=== PATIENT | female | born 1990 | race African-American/Black ===

== ENCOUNTER 2016-05-30 06:25 | Emergency (ER) | payer MEDICAID ==
--- NOTE | 2016-05-30 06:43 | EDM.PDOC ---
ED HPI ENT - General Chief Complaint: ENT Problem Stated Complaint: WRIST PAIN/ ABCESS TOOTH Time Seen by Provider: 05/30/16 06:34 - History of Present Illness INITIAL COMMENTS - FREE TEXT/NARRATIVE: 25-year-old female presents emergency room with dental pain and hand pain. The patient has a several-day history of worsening dental pain right lower rear tooth. This is been getting worse. Patient denies any fevers or chills. The pain is starting to shoot into her ear. The patient has been developing bilateral wrist and hand pain. She's tried ibuprofen 800 mg 3 times a day and it has not helped much. Her right hand is more painful than the left. on her left hand she's noticed decreased pillow agent strength. She has numbness and tingling in her thumb and index finger. On the right side she seems to have generalized pain in the hand and wrist area with a tingling sensation in the ring and pinky fingers. She is not having any associated elbow or shoulder pain with this. Past medical history is significant for ulcerative colitis. Family history is concerning for rheumatoid arthritis and ulcerative colitis - Related Data Allergies/ADRs: Allergies Allergy/AdvReac Type Severity Reaction Status Date / Time venom-honey bee Allergy Swelling Verified 05/30/16 06:40 [bee venom (honey bee)] Home Meds: Home Meds Amoxicillin 500 mg PO TID #30 tab 05/30/16 [Rx] Hydrocodone/Acetaminophen [[place] 5-325 Tablet] 1 - 2 each PO Q6H PRN #15 tablet 05/30/16 [Rx] Ibuprofen 800 mg PO Q6H PRN 05/30/16 [History] Past Medical History HEENT History: Reports: Other (see below) Other HEENT History: ear infection. dental pain Respiratory History: Reports: Asthma Gastrointestinal History: Reports: Other (see below) Other Gastrointestinal History: COLITIS. 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: - Infectious Disease History Infectious Disease History: Reports: None - Past Surgical History Female Surgical History: Reports: Other (see below) Other Female Surgeries/Procedures: has had 4 vaginal deliveries Social & Family History - Tobacco Use Smoking Status *Q: Current Every Day Smoker Years of Tobacco use: 12 Packs/Tins Daily: 0.5 Used Tobacco, but Quit: No Second Hand Smoke Exposure: Yes - Caffeine Use Caffeine Use: Reports: Soda, Tea - Recreational Drug Use Recreational Drug Use: No Drug Use in Last 12 Months: Yes Recreational Drug Type: Reports: Marijuana/Hashish ED ROS ENT - Review of Systems Review Of Systems: See Below Constitutional: Reports: no symptoms HEENT: Reports: Dental pain Respiratory: Reports: no symptoms Cardiovascular: Reports: No symptoms GI/Abdominal: Reports: No symptoms ED EXAM, ENT - Physical Exam Exam: See Below Exam Limited By: No limitations General Appearance: alert, no apparent distress Ears: normal external exam, normal canal, hearing grossly normal, normal TMs Nose: normal inspection, normal mucousa, no blood Mouth/Throat: Normal lips, Normal oropharynx, Other (on her left lower teeth most posterior molar she has significant decay with some gum erythema and swelling no obvious abscess no drainage at this time.) Head: atraumatic, normocephalic Neck: normal inspection, supple, non-tender, full range of motion. No: lymphadenopathy (L), lymphadenopathy (R) Respiratory/Chest: no respiratory distress, lungs clear, normal breath sounds Cardiovascular: regular rate, rhythm, no edema, no murmur Course - Vital Signs Last Recorded V/S: Last Vital Signs Temp 36.7 C 05/30/16 06:32 Pulse 90 05/30/16 06:32 Resp 16 05/30/16 06:32 BP 118/85 05/30/16 06:32 Pulse Ox 100 05/30/16 06:32 - Re-Assessments/Exams Free Text/Narrative Re-Assessment/Exam: 05/30/16 07:08 with no recent injuries x-rays of her hands and wrists are most likely to be of no benefit. She does have a family history of rheumatoid arthritis. She will need to establish a local clinic to begin workup for this. Her symptoms especially on the left could be consistent with carpal tunnel syndrome Will attempt carpal tunnel splinting to see if this helps. Patient started on amoxicillin and a prescription for a few [place] for her dental complaints. Departure - Departure Time of Disposition: 06:46 Disposition: Home, Self-Care 01 Clinical Impression: Dental caries, Bilateral hand pain, Bilateral wrist pain Prescriptions: Amoxicillin 500 mg PO TID #30 tab Hydrocodone/Acetaminophen [[place] 5-325 Tablet] 1 - 2 each PO Q6H PRN #15 tablet PRN Reason: Pain Referrals: PCP,None [Primary Care Provider] - Forms: ED Department Discharge Additional Instructions: Return to emergency room if any questions or problems. Followup in the clinic next week for recheck of your wrists and hands. Followup with a dentist as soon as you can your tooth needs to be fixed. You have been given amoxicillin, this is a antibiotic, take one 3 times a day until all gone. You been given [place] this is a pain medication take one or 2 every 6 hours as needed for pain. Do not drive or returning to work within 12 hours of using this medication. Use ibuprofen only take with meals and discontinue if it causes stomach upset. You have been given a prescription for carpal tunnel splints. Try these while working and at rest to see if they help it may take a few weeks.
== END 2016-05-30 07:10 | disposition home or self-care (01) ==
LOC: JD.ED 06:25
CPT/HCPCS: 99283

== ENCOUNTER 2016-07-29 01:51 | Emergency (ER) | payer MEDICAID ==
[2016-07-29 02:00] VITALS: BP 120/72
[2016-07-29] MEDS ORDERED: Ketorolac 60 MG/2 ML SDV IM ONE (02:27)
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
== END 2016-07-29 02:52 | disposition home or self-care (01) ==
LOC: JD.ED 01:51
DX: S39.012A Strain of muscle, fascia and tendon of lower back, initial encounter (principal); F17.210 Nicotine dependence, cigarettes, uncomplicated; Z91.030 Bee allergy status; X50.0XXA Overexertion from strenuous movement or load, initial encounter; Y92.69 Other specified industrial and construction area as the place of occurrence of the external cause; Y99.0 Civilian activity done for income or pay
CPT/HCPCS: 96372; 99283; J1885

== ENCOUNTER 2016-08-07 13:40 | Emergency (ER) | payer MEDICAID ==
[2016-08-07 13:51] VITALS: BP 112/71
[2016-08-07] MEDS ORDERED: Naproxen 500 MG Tab PO ONE (14:16)
[2016-08-07] MEDS ORDERED: Penicillin V Potassium 500 MG Tab PO ONE (14:16)
--- NOTE | 2016-08-07 14:22 | EDM.PDOC ---
ED HPI GENERAL MEDICAL PROBLEM - General Chief Complaint: ENT Problem Stated Complaint: TOOTH PAIN Time Seen by Provider: 08/07/16 13:46 Source of Information: Reports: Patient, Old Records, RN Notes Reviewed, Other ( [place] PMP[place]) History Limitations: Reports: No Limitations - History of Present Illness INITIAL COMMENTS - FREE TEXT/NARRATIVE: The patient states that she has an upper right tooth abscess. She states that she has pain to the right side of her mouth, extending to the right side of her face. She states that she saw a dentist in [place] about 2 months ago, and he recommended tooth extraction, however, she states that she does not have the money to pay for it. She denies recent fever. She states that she has had nausea, but no emesis. Reviewing the medical records, it appears that the patient has had this same toothache since at least March 2015. When asked about that, she reports that she goes to ERs periodically and gets prescriptions of antibiotics and pain medications, which she states she is currently out of. She states that she has an appointment to see a dentist here in [place] this coming 08/10/2016, and that this dentist takes payment plans. 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: Social & Family History - Family History Musculoskeletal: Reports: RA - Tobacco Use Smoking Status *Q: Current Every Day Smoker Years of Tobacco use: 12 Packs/Tins Daily: 0.3 Packs/Tins Daily Comment: Down from 1.5 ppd Second Hand Smoke Exposure: Yes - Caffeine Use Caffeine Use: Reports: Coffee - Alcohol Use Alcohol Use History: Yes Alcohol Use Frequency: Socially - Recreational Drug Use Recreational Drug Use: Yes Drug Use in Last 12 Months: Yes Recreational Drug Type: Reports: Marijuana/Hashish Recreational Drug Use Frequency: Socially - Living Situation & Occupation Living situation: Reports: Single, with Family Occupation: Employed ([employer]) ED ROS ENT - Review of Systems Review Of Systems: See Below Constitutional: Reports: No Symptoms HEENT: Reports: Dental Pain (as per the HPI) Respiratory: Reports: No Symptoms Cardiovascular: Reports: No Symptoms Endocrine: Reports: No Symptoms GI/Abdominal: Reports: No Symptoms : Reports: No Symptoms Musculoskeletal: Reports: No Symptoms Skin: Reports: No Symptoms Neurological: Reports: No Symptoms Psychiatric: Reports: No Symptoms Hematologic/Lymphatic: Reports: No Symptoms Immunologic: Reports: No Symptoms ED EXAM, ENT - Physical Exam Exam: See Below Exam Limited By: No Limitations General Appearance: Alert, WD/WN, Mild Distress Eye Exam: Bilateral Eye: Normal Inspection Ears: Normal External Exam, Normal Canal, Hearing Grossly Normal, Normal TMs Nose: Normal Inspection, Normal Mucousa, No Blood Mouth/Throat: Normal Inspection, Normal Gums, Normal Lips, Normal Oropharynx, Other (Tooth #1 partially erupted. Teeth #2, 3 with fillings. Tooth #4 (tooth of concern) with anterior beltran. Tooth #5 absent. Teeth #12, 13, 14, 15 with fillings. Tooth #16 partially erupted. Teeth numbers 30, 31 with fillings. Tooth #32 partially erupted.). No: Gum Swelling Head: Atraumatic, Normocephalic. No: Facial Swelling Neck: Normal Inspection, Supple, Non-Tender, Full Range of Motion. No: Lymphadenopathy (L), Lymphadenopathy (R) Course - Vital Signs Last Recorded V/S: Last Vital Signs Temp 36.4 C 08/07/16 13:46 Pulse 77 08/07/16 13:46 Resp 16 08/07/16 13:46 BP 112/71 08/07/16 13:46 Pulse Ox 100 08/07/16 13:46 - Orders/Labs/Meds Meds: Medications Discontinued Medications Generic Name Dose Route Start Last Admin Trade Name Freq PRN Reason Stop Dose Admin Naproxen 500 mg 08/07/16 14:16 08/07/16 14:25 Naprosyn PO 08/07/16 14:17 Not Given ONETIME ONE Penicillin V Potassium 500 mg 05/12/17 14:16 08/07/16 14:25 Veetids PO 08/07/16 14:17 Not Given ONETIME ONE - Re-Assessments/Exams Free Text/Narrative Re-Assessment/Exam: 08/07/16 14:17 The patient is complaining of pain to tooth #4. Reviewing the prior medical records, it appears the patient has had this since at least March 2015. She has been to this ED 4 times for the same thing, each time receiving a prescription for an opioid. The [place] indicates additional prescriptions of [place] by prescribers not on staff at this facility. The patient was pleasant and cooperative until I explained that I cannot prescribe a narcotic for her today, at which time she became hostile. While I believe the patient has a legitimate dental issue, it appears that she has not made a significant effort to have it taken care of. Further, given her hostility, it appears that she is drug seeking. For today's purposes, I will start her on penicillin and naproxen, and will e- prescribe 10 days of each. 08/07/16 14:21 Notified that the patient wants to leave without receiving the ordered medications. She states that she has a 10-day prescription for penicillin at home, but that "it is not working". It is not clear where this prescription came from, and if she has a 10-day supply, how she could be taking it. Departure - Departure Time of Disposition: 14:20 Disposition: Home, Self-Care 01 Condition: fair Clinical Impression: Dentalgia, Drug-seeking behavior - Discharge Information Prescriptions: Naproxen 500 mg PO Q12H PRN #20 tablet PRN Reason: Pain Penicillin V Potassium [IJD: Penicillin V Potassium] 500 mg PO Q6H #40 tab Referrals: PCP,None [Primary Care Provider] - Forms: ED Department Discharge Additional Instructions: You were seen in the emergency room for an upper right toothache. On examination, no infection is seen, however, that does not mean that there could not be in infection under the tooth. You have been started on the antibiotic penicillin. Take one tablet every 6 hours, as prescribed. Finish the entire prescription unless told otherwise by a dentist. You have been started on the pain medicine naproxen. Take one tablet every 12 hours, with food, as prescribed. It is IMPERATIVE that you keep your appointment with your dentist this coming 08/10/2016, to have this taken care of. The emergency room is unable to deal with dental issues. If any other problems, please do not hesitate to return to the ER.
== END 2016-08-07 14:30 | disposition home or self-care (01) ==
LOC: JD.ED 13:40
DX: K08.89 Other specified disorders of teeth and supporting structures (principal); Z76.5 Malingerer [conscious simulation]; F17.210 Nicotine dependence, cigarettes, uncomplicated; Z91.030 Bee allergy status
CPT/HCPCS: 99283

== ENCOUNTER 2016-12-21 18:42 | Emergency (ER) | payer MEDICAID ==
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
--- NOTE | 2016-12-21 20:36 | CT ---
Head CT Technique: Multiple axial sections through the brain were obtained. Intravenous contrast was not utilized. Comparison: No previous intracranial imaging. Findings: Ventricles along with basal cisterns and sulci over the convexities are within normal limits for the patient's age. No abnormal parenchymal densities are seen. No evidence of intracranial hemorrhage. No midline shift or mass effect is seen. Bone window settings were reviewed which shows no acute calvarial abnormality. Impression: 1. Nothing acute is identified on noncontrast head CT study. Diagnostic code #1
--- NOTE | 2016-12-21 20:38 | CT ---
CT cervical spine Technique: Multiple axial sections were obtained from above C1 inferiorly to the bottom of T3. Reconstructed sagittal and coronal images were reviewed. Comparison: No previous cervical spine imaging. Findings: Vertebral body heights and disc spaces are maintained. Vertebral bodies and posterior arches are intact. No fracture is seen. No bony central or bony neural foraminal stenosis is seen. Kyphosis is present most likely positional. No abnormal subluxation is appreciated. Impression: 1. Kyphosis is noted and most likely is positional. 2. No acute abnormality is seen on CT study of the cervical spine. Diagnostic code #2
[2016-12-21 21:00] VITALS: BP 118/85
--- NOTE | 2016-12-22 07:32 | CR ---
Chest: Frontal view of the chest was obtained. Comparison: No prior chest x-ray. Heart size and mediastinum are normal. Lungs are clear. Bony structures are grossly intact. Impression: 1. Nothing acute is seen on PA chest x-ray. Diagnostic code #1
--- NOTE | 2016-12-22 07:32 | CR ---
Thoracic spine: Single lateral view of the thoracic spine was obtained. AP view is seen on the chest x-ray. Vertebral body heights are maintained. Disc heights are maintained. Pedicles are intact. No subluxation or fracture is seen. Impression: 1. No abnormality is identified on lateral thoracic spine study. Diagnostic code #1
== END 2016-12-21 19:55 | disposition home or self-care (01) ==
LOC: JD.ED 18:42
DX: S06.0X0A Concussion without loss of consciousness, initial encounter (principal); S16.1XXA Strain of muscle, fascia and tendon at neck level, initial encounter; S29.019A Strain of muscle and tendon of unspecified wall of thorax, initial encounter; F17.210 Nicotine dependence, cigarettes, uncomplicated; Z91.030 Bee allergy status; V89.2XXA Person injured in unspecified motor-vehicle accident, traffic, initial encounter
CPT/HCPCS: 36415; 70450; 71010; 72020; 72125; 80053; 84702; 85025; 99284; G0480

== ENCOUNTER 2017-02-07 19:22 | Emergency (ER) | payer MEDICAID, OTHER ==
[2017-02-07 19:35] VITALS: BP 116/79
[2017-02-07] MEDS ORDERED: Ondansetron 4 MG/2 ML SDV IVPUSH ONE (19:51)
[2017-02-07] MEDS ORDERED: Sodium Chloride 0.9% 10 ML Syringe FLUSH PRN (19:51)
--- NOTE | 2017-02-07 19:52 | EDM.PDOC ---
ED HPI GENERAL MEDICAL PROBLEM - General Chief Complaint: Abdominal Pain Stated Complaint: [facility] Time Seen by Provider: 02/07/17 19:39 Source of Information: Reports: Patient, RN Notes Reviewed - History of Present Illness INITIAL COMMENTS - FREE TEXT/NARRATIVE: 26-year-old female has been brought in by [facility] ambulance for evaluation of abdominal pain, nausea and vomiting. This started yesterday morning and continues today. She has had primarily right-sided abdominal pain with intermittent cramping, nausea, frequent vomiting. His been no diarrhea. She states that she has had chills, possible low-grade fever. She's had no voiding dysuria does have voiding urgency and pain does radiate to the right side of her back. She states she did have a positive test about 6 weeks ago but then was told a day or 2 later she was "not ". Her menstrual periods have been quite heavy, irregular. Does not have current vaginal bleeding or discharge. Right Abdominal Pain Score (Numeric/FACES): 9 - Related Data Allergies Allergy/AdvReac Type Severity Reaction Status Date / Time venom-honey bee Allergy Swelling Verified 02/07/17 21:00 [bee venom (honey bee)] Home Meds: Home Meds Levofloxacin [Levaquin] 500 mg PO DAILY #9 tablet 02/07/17 [Rx] Ondansetron [Zofran ODT] 4 mg PO Q6H PRN #7 tab.dis 02/07/17 [Rx] Past Medical History HEENT History: Reports: Other (See Below) Other HEENT History: ear infection. dental pain Respiratory History: Reports: Asthma Gastrointestinal History: Reports: Inflammatory Bowel Disease Other Gastrointestinal History: ulcerative colitis RN [facility] History: Reports: , Other (See Below) Other OB/BYN History: Miscarriage (not sure at how far along she was) Hematologic History: Reports: Anemia - Infectious Disease History Infectious Disease History: Reports: None - Past Surgical History Female Surgical History: Reports: Other (See Below) Social & Family History - Family History Family Medical History: Noncontributory Musculoskeletal: Reports: RA - Tobacco Use Smoking Status *Q: Current Every Day Smoker Years of Tobacco use: 13 Packs/Tins Daily: 0.3 Used Tobacco, but Quit: No Second Hand Smoke Exposure: Yes - Caffeine Use Caffeine Use: Reports: Coffee - Recreational Drug Use Recreational Drug Use: Yes Drug Use in Last 12 Months: Yes Recreational Drug Type: Reports: Marijuana/Hashish Recreational Drug Use Frequency: Monthly - Living Situation & Occupation Living situation: Reports: Single, with Family Occupation: Employed ([employer]) ED ROS GENERAL - Review of Systems Review Of Systems: See Below Constitutional: Reports: Fever, Chills (Low-grade) HEENT: Reports: Throat Pain Respiratory: Denies: Shortness of Breath (About 5 days ago, gone), Pleuritic Chest Pain Cardiovascular: Denies: Chest Pain GI/Abdominal: Reports: Abdominal Pain (Primarily right sided), Decreased Appetite, Nausea, Vomiting. Denies: Diarrhea Musculoskeletal: Reports: Back Pain Skin: Reports: No Symptoms Neurological: Reports: Dizziness. Denies: Numbness, Tingling, Weakness ED EXAM, GI/ABD - Physical Exam Exam: See Below General Appearance: Alert, No Apparent Distress Throat/Mouth: Normal Inspection, Normal Oropharynx, Other (Oral mucosa mildly dry) Head: Atraumatic. No: Facial Swelling Neck: Supple Respiratory/Chest: No Respiratory Distress, Lungs Clear, Normal Breath Sounds Cardiovascular: Tachycardia GI/Abdominal Exam: Soft, Tender (Moderate tenderness right upper quadrant mild to moderate tenderness right lower quadrant, minimal tenderness left abdomen). No: Guarding, Rebound Back Exam: CVA Tenderness (R) (Mild) Extremities: Normal Inspection, Normal Range of Motion Neurological: Alert, Oriented, No Motor/Sensory Deficits Skin Exam: Warm, Dry Course - Vital Signs Last Recorded V/S: Last Vital Signs Temp 99.2 F 02/07/17 19:28 Pulse 102 H 02/07/17 19:28 Resp 18 02/07/17 19:28 BP 116/79 02/07/17 19:28 Pulse Ox - Orders/Labs/Meds Orders: Active Orders 24 hr Category Date Time Status Peripheral IV Care [RC] . DIRECTED Care 02/07/17 19:52 Active CULTURE URINE [RM] Stat Lab 02/07/17 20:10 Received Sodium Chloride 0.9% [Normal Saline] 1,000 ml Med 02/07/17 20:00 Active IV ONETIME Sodium Chloride 0.9% [Saline Flush] Med 02/07/17 19:51 Active 10 ml FLUSH ASDIRECTED PRN Peripheral IV Insertion Adult [OM.PC] Stat Oth 02/07/17 19:51 Ordered Medication Orders Sodium Chloride (Normal Saline) 1,000 mls @ 999 mls/hr IV ONETIME KESHA Last Admin: 02/07/17 20:17 Dose: 999 mls/hr Sodium Chloride (Saline Flush) 10 ml FLUSH ASDIRECTED PRN PRN Reason: Keep Vein Open Last Admin: 02/07/17 20:19 Dose: 10 ml Labs: Laboratory Tests 02/07/17 02/07/17 02/07/17 Range/Units 19:58 19:58 20:10 WBC 11.13 H (3.98-10.04) K/mm3 RBC 4.57 (3.98-5.22) M/mm3 Hgb 13.4 (11.2-15.7) gm/L Hct 39.1 (34.1-44.9) % MCV 85.6 (79.4-94.8) fl MCH 29.3 (25.6-32.2) pg MCHC 34.3 (32.2-35.5) g/dl RDW Std Deviation 41.2 (36.4-46.3) fL Plt Count 284 (182-369) K/mm3 MPV 8.8 L (9.4-12.3) fl Neut % (Auto) 78.4 H (34.0-71.1) % Lymph % (Auto) 12.7 L (19.3-51.7) % Bureau % (Auto) 8.3 (4.7-12.5) % Eos % (Auto) 0.1 L (0.7-5.8) Baso % (Auto) 0.2 (0.1-1.2) % Neut # (Auto) 8.74 H (1.56-6.13) K/mm3 Lymph # (Auto) 1.41 (1.18-3.74) K/mm3 Bureau # (Auto) 0.92 H (0.24-0.36) K/mm3 Eos # (Auto) 0.01 L (0.04-0.36) K/mm3 Baso # (Auto) 0.02 (0.01-0.08) K/mm3 Sodium 137 (136-145) mEq/L Potassium 3.8 (3.5-5.1) mEq/L Chloride 103 (98-107) mEq/L Carbon Dioxide 20 L (21-32) mEq/L Anion Gap 17.8 H (5-15) BUN 12 (7-18) mg/dL Creatinine 1.0 (0.55-1.02) mg/dL Est Cr Clr Drug Dosing 60.70 mL/min Estimated GFR (MDRD) > 60 (>60) mL/min BUN/Creatinine Ratio 12.0 L (14-18) Glucose 89 (74-106) mg/dL Calcium 8.9 (8.5-10.1) mg/dL Total Bilirubin 0.5 (0.2-1.0) mg/dL AST 13 L (15-37) U/L ALT 18 (14-59) U/L Alkaline Phosphatase 62 (46-116) U/L Total Protein 7.2 (6.4-8.2) g/dl Albumin 3.5 (3.4-5.0) g/dl Globulin 3.7 gm/dL Albumin/Globulin Ratio 1.0 (1-2) Lipase 55 L (73-393) U/L Urine Color (Yellow) Urine Appearance (Clear) Urine pH (5.0-8.0) Ur Specific [place] (1.005-1.030) Urine Protein (Negative) Urine Glucose (UA) (Negative) Urine Ketones (Negative) Urine Occult Blood (Negative) Urine Nitrite (Negative) Urine Bilirubin (Negative) Urine Urobilinogen (0.2-1.0) Ur Leukocyte Esterase (Negative) Urine RBC (0-5) /hpf Urine WBC (0-5) /hpf Ur Epithelial Cells (0-5) /hpf Urine Bacteria (FEW) /hpf Urine Mucus (FEW) /hpf Urine HCG, Qual Negative (NEGATIVE) 02/07/17 Range/Units 20:10 WBC (3.98-10.04) K/mm3 RBC (3.98-5.22) M/mm3 Hgb (11.2-15.7) gm/L Hct (34.1-44.9) % MCV (79.4-94.8) fl MCH (25.6-32.2) pg MCHC (32.2-35.5) g/dl RDW Std Deviation (36.4-46.3) fL Plt Count (182-369) K/mm3 MPV (9.4-12.3) fl Neut % (Auto) (34.0-71.1) % Lymph % (Auto) (19.3-51.7) % Bureau % (Auto) (4.7-12.5) % Eos % (Auto) (0.7-5.8) Baso % (Auto) (0.1-1.2) % Neut # (Auto) (1.56-6.13) K/mm3 Lymph # (Auto) (1.18-3.74) K/mm3 Bureau # (Auto) (0.24-0.36) K/mm3 Eos # (Auto) (0.04-0.36) K/mm3 Baso # (Auto) (0.01-0.08) K/mm3 Sodium (136-145) mEq/L Potassium (3.5-5.1) mEq/L Chloride (98-107) mEq/L Carbon Dioxide (21-32) mEq/L Anion Gap (5-15) BUN (7-18) mg/dL Creatinine (0.55-1.02) mg/dL Est Cr Clr Drug Dosing mL/min Estimated GFR (MDRD) (>60) mL/min BUN/Creatinine Ratio (14-18) Glucose (74-106) mg/dL Calcium (8.5-10.1) mg/dL Total Bilirubin (0.2-1.0) mg/dL AST (15-37) U/L ALT (14-59) U/L Alkaline Phosphatase (46-116) U/L Total Protein (6.4-8.2) g/dl Albumin (3.4-5.0) g/dl Globulin gm/dL Albumin/Globulin Ratio (1-2) Lipase (73-393) U/L Urine Color Yellow (Yellow) Urine Appearance Cloudy H (Clear) Urine pH 6.0 (5.0-8.0) Ur Specific [place] 1.025 (1.005-1.030) Urine Protein 2+ H (Negative) Urine Glucose (UA) Negative (Negative) Urine Ketones 3+ H (Negative) Urine Occult Blood 1+ H (Negative) Urine Nitrite Negative (Negative) Urine Bilirubin 1+ H (Negative) Urine Urobilinogen 0.2 (0.2-1.0) Ur Leukocyte Esterase 2+ H (Negative) Urine RBC 10-20 H (0-5) /hpf Urine WBC Too numerous to cnt H (0-5) /hpf Ur Epithelial Cells 5-10 H (0-5) /hpf Urine Bacteria Moderate H (FEW) /hpf Urine Mucus Not seen (FEW) /hpf Urine HCG, Qual (NEGATIVE) Meds: Medications Generic Name Dose Route Start Last Admin Trade Name Freq PRN Reason Stop Dose Admin Sodium Chloride 1,000 mls @ 999 mls/hr 02/07/17 20:00 02/07/17 20:17 Normal Saline IV 999 mls/hr ONETIME KESHA Administration Sodium Chloride 10 ml 02/07/17 19:51 02/07/17 20:19 Saline Flush FLUSH 10 ml ASDIRECTED PRN Administration Keep Vein Open Discontinued Medications Generic Name Dose Route Start Last Admin Trade Name Freq PRN Reason Stop Dose Admin Acetaminophen 975 mg 02/07/17 20:47 02/07/17 20:58 Tylenol PO 02/07/17 20:48 975 mg NOW ONE Administration Hydromorphone HCl 0.5 mg 02/07/17 20:58 02/07/17 21:20 Dilaudid IVPUSH 02/07/17 20:59 0.5 mg ONETIME ONE Administration Ceftriaxone Sodium 1 gm/ 100 mls @ 200 mls/hr 02/07/17 20:47 02/07/17 21:00 Sodium Chloride IV 02/07/17 21:16 200 mls/hr ONETIME ONE Administration Levofloxacin 500 mg 02/07/17 21:48 02/07/17 21:57 Levaquin PO 02/07/17 21:49 500 mg ONETIME ONE Administration Ondansetron HCl 4 mg 02/07/17 19:51 02/07/17 20:18 Zofran IVPUSH 02/07/17 19:52 4 mg ONETIME ONE Administration - Re-Assessments/Exams Free Text/Narrative Re-Assessment/Exam: 02/07/17 22:30. Lab work shows that she does have UTI, probable pyelonephritis, we have treated her with 1 L of fluid, 1 g IV Rocephin, Levaquin 500 mg oral, Zofran 4 mg IV. That she does already feel better. She has been drinking fluid for us, no further vomiting while here in the ED. She's been on the phone for much of the last several hours while here in the ED not showing much sign of acute distress. Urine culture has been done, discharge instructions as documented. Departure - Departure Time of Disposition: 22:24 Disposition: Home, Self-Care 01 Condition: Fair Clinical Impression: Pyelonephritis - Discharge Information Prescriptions: Levofloxacin [Levaquin] 500 mg PO DAILY #9 tablet Ondansetron [Zofran ODT] 4 mg PO Q6H PRN #7 tab.dis PRN Reason: Nausea/Vomiting Referrals: PCP,None [Primary Care Provider] - Forms: ED Department Discharge Additional Instructions: Drink plenty of water and other fluids to maintain hydration, Zofran ODT if needed for further nausea or vomiting, Levaquin antibiotic 500 mg daily for the next 9 days, your next dose should be tomorrow morning and take that daily until gone. Follow-up at our [facility] with one of our medical providers Wednesday, 2 days from now. A urine culture has been done. Results should be available by Wednesday. Call [phone] for appointment tomorrow morning. Return to ED if symptoms worsening in any way - My Orders Last 24 Hours: My Active Orders 02/07/17 19:51 Sodium Chloride 0.9% [Saline Flush] 10 ml FLUSH ASDIRECTED PRN Peripheral IV Insertion Adult [OM.PC] Stat 02/07/17 19:52 Peripheral IV Care [RC] . DIRECTED 02/07/17 20:00 Sodium Chloride 0.9% [Normal Saline] 1,000 ml IV ONETIME 02/07/17 20:10 CULTURE URINE [RM] Stat - Assessment/Plan Last 24 Hours: My Active Orders 02/07/17 19:51 Sodium Chloride 0.9% [Saline Flush] 10 ml FLUSH ASDIRECTED PRN Peripheral IV Insertion Adult [OM.PC] Stat 02/07/17 19:52 Peripheral IV Care [RC] . DIRECTED 02/07/17 20:00 Sodium Chloride 0.9% [Normal Saline] 1,000 ml IV ONETIME 02/07/17 20:10 CULTURE URINE [RM] Stat
[2017-02-07] MEDS ORDERED: Sodium Chloride 0.9% 1,000 ML IV SCH (20:00)
[2017-02-07] MEDS ORDERED: Acetaminophen 325 MG Tab PO ONE (20:47)
[2017-02-07] MEDS ORDERED: cefTRIAXone 1 GM in Sodium Chloride 0.9% 100 ML IV ONE (20:47)
[2017-02-07] MEDS ORDERED: HYDROmorphone 0.5 MG/0.5 ML Syringe IVPUSH ONE (20:58)
[2017-02-07] MEDS ORDERED: Levofloxacin 250 MG Tab PO ONE (21:48)
== END 2017-02-07 22:35 | disposition home or self-care (01) ==
LOC: JD.ED 19:22
DX: N12 Tubulo-interstitial nephritis, not specified as acute or chronic (principal); F17.210 Nicotine dependence, cigarettes, uncomplicated
CPT/HCPCS: 36415; 80053; 81001; 81025; 83690; 85025; 87086; 87088; 87186; 96361; 96365; 96375; 99285; A9270; J0696; J1170; J2405; J7030; J7040; J7050; 99284

== ENCOUNTER 2017-02-08 03:34 | Inpatient (IN) | payer MEDICAID, OTHER ==
[2017-02-08] MEDS ORDERED: Ondansetron 4 MG/2 ML SDV IVPUSH ONE (03:55)
[2017-02-08] MEDS ORDERED: Sodium Chloride 0.9% 10 ML Syringe FLUSH PRN (03:55)
[2017-02-08] MEDS ORDERED: Sodium Chloride 0.9% 1,000 ML IV SCH (04:00)
--- NOTE | 2017-02-08 04:37 | EDM.PDOC ---
ED HPI GENERAL MEDICAL PROBLEM - General Chief Complaint: Gastrointestinal Problem Stated Complaint: [facility] Time Seen by Provider: 02/08/17 03:54 Source of Information: Reports: Patient, RN Notes Reviewed - History of Present Illness INITIAL COMMENTS - FREE TEXT/NARRATIVE: 26-year-old female returns with nausea vomiting having just been discharged from our department about 4 hours ago. She was evaluated late last evening for symptoms of nausea vomiting right flank and back discomfort. She was diagnosed with pyelonephritis. She was treated with 1 L of normal saline, IV Zofran, IV Rocephin and by mouth Levaquin. After the zofran and some time she drank fluids without difficulty. She had no nausea or vomiting during the 2-3 hours while she was in our department. It was anticipated that she would do okay at home but about 2-1/2 hours after arriving home she states she became very nauseated, started vomiting and did end up vomiting multiple times. She called the ambulance again and was transported here without further incident. She does still feel nauseated. She's vomited once more since arrival. She has pain primarily right flank and right back. Lower Back Pain Score (Numeric/FACES): 10 - Related Data Allergies Allergy/AdvReac Type Severity Reaction Status Date / Time venom-honey bee Allergy Swelling Verified 02/07/17 21:00 [bee venom (honey bee)] Home Meds: Home Meds Levofloxacin [Levaquin] 500 mg PO DAILY #9 tablet 02/07/17 [Rx] Ondansetron [Zofran ODT] 4 mg PO Q6H PRN #7 tab.dis 02/07/17 [Rx] Past Medical History HEENT History: Reports: Other (See Below) Other HEENT History: ear infection. dental pain Respiratory History: Reports: Asthma Gastrointestinal History: Reports: Inflammatory Bowel Disease Other Gastrointestinal History: ulcerative colitis [employer] History: Reports: , Other (See Below) Other OB/BYN History: Miscarriage (not sure at how far along she was) Hematologic History: Reports: Anemia - Infectious Disease History Infectious Disease History: Reports: None - Past Surgical History Female Surgical History: Reports: Other (See Below) Social & Family History - Family History Family Medical History: Noncontributory Musculoskeletal: Reports: RA - Tobacco Use Smoking Status *Q: Current Every Day Smoker Years of Tobacco use: 13 Packs/Tins Daily: 0.3 Used Tobacco, but Quit: No Second Hand Smoke Exposure: Yes - Caffeine Use Caffeine Use: Reports: Coffee, Soda - Recreational Drug Use Recreational Drug Use: Yes Drug Use in Last 12 Months: Yes Recreational Drug Type: Reports: Marijuana/Hashish Other Recreational Drug Type: once a month Recreational Drug Use Frequency: Monthly - Living Situation & Occupation Living situation: Reports: Single, with Family Occupation: Employed ([employer]) ED ROS GENERAL - Review of Systems Review Of Systems: See Below Constitutional: Reports: Fever (Low-grade), Chills HEENT: Reports: Other. Denies: Throat Pain (Mouth feels dry) Respiratory: Denies: Shortness of Breath, Pleuritic Chest Pain Cardiovascular: Denies: Chest Pain GI/Abdominal: Reports: Abdominal Pain (Primarily right upper abdomen, right flank), Nausea, Vomiting : Reports: Flank Pain. Denies: Dysuria, Frequency Musculoskeletal: Denies: Back Pain Skin: Reports: No Symptoms Neurological: Reports: Dizziness, Weakness (Mild generalized) ED EXAM, GI/ABD - Physical Exam Exam: See Below General Appearance: Alert, Anxious (Mild), Moderate Distress Eyes: Bilateral: Normal Appearance Throat/Mouth: Other (Oral mucosa is somewhat dry) Head: Atraumatic. No: Facial Swelling Neck: Supple, Full Range of Motion Respiratory/Chest: No Respiratory Distress, Lungs Clear, Normal Breath Sounds Cardiovascular: Tachycardia GI/Abdominal Exam: Soft, Tender (Upper mid abdomen right upper quadrant right flank). No: Guarding, Rebound Back Exam: CVA Tenderness (R) Extremities: Normal Inspection. No: Pedal Edema, Leg Pain Neurological: Alert, Oriented, No Motor/Sensory Deficits Skin Exam: Warm, Dry, Normal Color Course - Vital Signs Last Recorded V/S: Last Vital Signs Temp 102.6 F H 02/08/17 06:30 Pulse 126 H 02/08/17 03:38 Resp 22 H 02/08/17 03:38 BP 145/78 H 02/08/17 03:38 Pulse Ox 98 02/08/17 03:38 - Orders/Labs/Meds Orders: Active Orders 24 hr Category Date Time Status Peripheral IV Care [RC] . DIRECTED Care 02/08/17 03:55 Active Sodium Chloride 0.9% [Normal Saline] 1,000 ml Med 02/08/17 04:00 Active IV ONETIME Sodium Chloride 0.9% [Saline Flush] Med 02/08/17 03:55 Active 10 ml FLUSH ASDIRECTED PRN Peripheral IV Insertion Adult [OM.PC] Stat Oth 02/08/17 03:55 Ordered Medication Orders Acetaminophen (Tylenol) 650 mg PO Q6H PRN PRN Reason: Fever Last Admin: 02/08/17 06:30 Dose: 650 mg Hydromorphone HCl (Dilaudid) 0.5 mg IVPUSH Q4H PRN PRN Reason: Pain Last Admin: 02/08/17 06:08 Dose: 0.5 mg Sodium Chloride (Normal Saline) 1,000 mls @ 999 mls/hr IV ONETIME KESHA Last Admin: 02/08/17 04:11 Dose: 999 mls/hr Sodium Chloride (Normal Saline) 1,000 mls @ 150 mls/hr IV ASDIRECTED KESHA Last Admin: 02/08/17 06:12 Dose: 150 mls/hr Ondansetron HCl (Zofran) 4 mg IVPUSH Q6H PRN PRN Reason: Nausea Sodium Chloride (Saline Flush) 10 ml FLUSH ASDIRECTED PRN PRN Reason: Keep Vein Open Last Admin: 02/08/17 04:11 Dose: 10 ml Meds: Medications Generic Name Dose Route Start Last Admin Trade Name Freq PRN Reason Stop Dose Admin Acetaminophen 650 mg 02/08/17 06:16 02/08/17 06:30 Tylenol PO 650 mg Q6H PRN Administration Fever Hydromorphone HCl 0.5 mg 02/08/17 05:44 02/08/17 06:08 Dilaudid IVPUSH 0.5 mg Q4H PRN Administration Pain Sodium Chloride 1,000 mls @ 999 mls/hr 02/08/17 04:00 02/08/17 04:11 Normal Saline IV 999 mls/hr ONETIME KESHA Administration Sodium Chloride 1,000 mls @ 150 mls/hr 02/08/17 05:45 02/08/17 06:12 Normal Saline IV 150 mls/hr ASDIRECTED KESHA Administration Ondansetron HCl 4 mg 02/08/17 05:44 Zofran IVPUSH Q6H PRN Nausea Sodium Chloride 10 ml 02/08/17 03:55 02/08/17 04:11 Saline Flush FLUSH 10 ml ASDIRECTED PRN Administration Keep Vein Open Discontinued Medications Generic Name Dose Route Start Last Admin Trade Name Caroline PRN Reason Stop Dose Admin Ondansetron HCl 4 mg 02/08/17 03:55 02/08/17 04:11 Zofran IVPUSH 02/08/17 03:56 4 mg ONETIME ONE Administration - Re-Assessments/Exams Free Text/Narrative Re-Assessment/Exam: 02/08/17 04:39. Have restarted an IV, running a further 1 L normal saline. Have given Zofran 4 mg IV. Lab work was just done 6-7 hours ago so I'm not going to repeat that at this time. She does have UTI with pyelonephritis. She did have the 1 g Rocephin IV about about 6 hours ago. She then also did have oral Levaquin 500 mg prior to discharge. She started vomiting about 2-3 hours later so that will not be repeated at this time. Discharge home did not work out so we will admit her into the hospital at this time. She Does qualify for inpatient admission. Departure - Departure Time of Disposition: 04:41 Disposition: Admitted As Inpatient 65 Condition: Fair Clinical Impression: Pyelonephritis - Discharge Information ED Communication - Discussed Case With (1) Discussed Case With (1): Admitting Provider (Dr Scales, decision to admit at about 04:15. Bridge orders written.) - My Orders Last 24 Hours: My Active Orders 02/08/17 03:55 Peripheral IV Care [RC] . DIRECTED Sodium Chloride 0.9% [Saline Flush] 10 ml FLUSH ASDIRECTED PRN Peripheral IV Insertion Adult [OM.PC] Stat 02/08/17 04:00 Sodium Chloride 0.9% [Normal Saline] 1,000 ml IV ONETIME - Assessment/Plan Last 24 Hours: My Active Orders 02/08/17 03:55 Peripheral IV Care [RC] . DIRECTED Sodium Chloride 0.9% [Saline Flush] 10 ml FLUSH ASDIRECTED PRN Peripheral IV Insertion Adult [OM.PC] Stat 02/08/17 04:00 Sodium Chloride 0.9% [Normal Saline] 1,000 ml IV ONETIME
[2017-02-08] MEDS: HYDROmorphone 0.5 MG/0.5 ML Syringe IVPUSH PRN ×3 (06:08→17:53)
[2017-02-08] MEDS: Sodium Chloride 0.9% 1,000 ML IV SCH ×3 (06:12→20:44)
[2017-02-08] MEDS: Acetaminophen 325 MG Tab PO PRN ×2 (06:30→12:42)
--- NOTE | 2017-02-08 08:21 | PCM.HP ---
<Bridget Burton - Last Filed: 02/08/17 08:16> H&P History of Present Illness - General Date of Service: 02/08/17 Admit Problem/Dx: Admission Diagnosis/Problem Admission Diagnosis/Problem Pyelonephritis Source of Information: Patient History Limitations: Reports: No Limitations - History of Present Illness Onset of Symptoms: Reports: Gradual Symptom Onset Date: 02/06/17 Duration of Symptoms: Reports: Day(s):, Getting Worse Location: Reports: Abdomen, Back Severity: Severe Improves with: Reports: None Worsens with: Reports: Heat Therapy Associated Symptoms: Reports: Fever/Chills, Headaches, Nausea/Vomiting Lower Back Pain Score (Numeric/FACES): 8 - Related Data Allergies/Adverse Reactions: Allergies Allergy/AdvReac Type Severity Reaction Status Date / Time venom-honey bee Allergy Swelling Verified 02/08/17 09:49 [bee venom (honey bee)] Home Medications: Home Meds Levofloxacin [Levaquin] 500 mg PO DAILY #9 tablet 02/07/17 [Rx] Ondansetron [Zofran ODT] 4 mg PO Q6H PRN #7 tab.dis 02/07/17 [Rx] Past Medical History HEENT History: Reports: Other (See Below) Other HEENT History: ear infection. dental pain Respiratory History: Reports: Asthma Gastrointestinal History: Reports: Inflammatory Bowel Disease Other Gastrointestinal History: ulcerative colitis IP TECHNOLOGY TRANSACTIONS ATTORNEY History: Reports: , Other (See Below) : 4 Para: 4 LMP (Approximate): 1 Month Other OB/BYN History: Remembers an incident were she was told she may have had a miscarriage, but there was no testing done to confirm it Hematologic History: Reports: Anemia - Infectious Disease History Infectious Disease History: Reports: None Social & Family History - Family History Family Medical History: Noncontributory Musculoskeletal: Reports: RA - Tobacco Use Smoking Status *Q: Current Every Day Smoker Years of Tobacco use: 14 Packs/Tins Daily: 0.5 Used Tobacco, but Quit: No Second Hand Smoke Exposure: Yes - Caffeine Use Caffeine Use: Reports: Coffee, Soda - Alcohol Use Alcohol Use History: Yes Alcohol Use Frequency: Rarely Alcohol Use Comment: Reports having drinks on New Years and her birthday - Recreational Drug Use Recreational Drug Use: Yes Drug Use in Last 12 Months: Yes Recreational Drug Type: Reports: Marijuana/Hashish Other Recreational Drug Type: once a month Recreational Drug Use Frequency: Weekly - Sexual History Sexual History: Reports: Sexually Active - Living Situation & Occupation Living situation: Reports: Single, with Significant Other, with Family Occupation: Employed ([id number]) H&P Review of Systems - Review of Systems: Review Of Systems: See Below General: Reports: Weakness, Fatigue, Diaphoresis HEENT: Reports: Headaches Pulmonary: Reports: Cough Cardiovascular: Reports: No Symptoms Gastrointestinal: Reports: Abdominal Pain Genitourinary: Reports: Frequency Musculoskeletal: Reports: No Symptoms Skin: Reports: No Symptoms Psychiatric: Reports: No Symptoms Neurological: Reports: No Symptoms Hematologic/Lymphatic: Reports: No Symptoms Immunologic: Reports: No Symptoms Exam - Exam Exam: See Below - Vital Signs Vital Signs: Last Vital Signs Temp 102.6 F H 02/08/17 06:30 Pulse 126 H 02/08/17 03:38 Resp 22 H 02/08/17 03:38 BP 145/78 H 02/08/17 03:38 Pulse Ox 98 02/08/17 03:38 Weight: 2.098 kg - Exam General: Alert, Oriented, Cooperative HEENT: Conjunctiva Clear, EACs Clear, EOMI, Hearing Intact, Mucosa Moist & [place] , Nares Patent, Normal Nasal Septum, Pupils Equal, Pupils Reactive Neck: Supple, Trachea Midline Lungs: Clear to Auscultation, Normal Respiratory Effort Cardiovascular: Regular Rate, Regular Rhythm GI/Abdominal Exam: Normal Bowel Sounds, Soft, No Organomegaly, No Distention, No Abnormal Bruit, No Mass, Tender (Female) Exam: Deferred Rectal (Female) Exam: Deferred Back Exam: Normal Inspection, Full Range of Motion, CVA Tenderness (R) Extremities: Normal Inspection, Normal Range of Motion, Non-Tender, No Pedal Edema, Normal Capillary Refill Skin: Warm, Dry, Intact Neuro Extensive - Mental Status: Alert, Oriented x3, Normal Mood/Affect, Normal Cognition Psychiatric: Alert, Normal Affect, Normal Mood *Q Meaningful Use (ADM) - VTE *Q VTE Criteria *Q: - Stroke *Q Stroke Criteria *Q: - AMI *Q AMI Criteria *Q: Problem List Initiated/Reviewed/Updated: Yes Orders Last 24hrs: Active Orders 24 hr Category Date Time Status Patient Status [ADT] Routine ADT 02/08/17 04:55 Active Activity as Tolerated [RC] .Routine Care 02/08/17 06:01 Active Clear Liquid Diet [DIET] Diet 02/08/17 Breakfast Active Acetaminophen [Tylenol] Med 02/08/17 06:16 Active 650 mg PO Q6H PRN HYDROmorphone [Dilaudid] Med 02/08/17 05:44 Active 0.5 mg IVPUSH Q4H PRN Ondansetron [Zofran] Med 02/08/17 05:44 Active 4 mg IVPUSH Q6H PRN Sodium Chloride 0.9% [Normal Saline] 1,000 ml Med 02/08/17 05:45 Active IV ASDIRECTED Code Status [Resuscitation Status] Routine Resus Stat 02/08/17 05:44 Ordered Medication Orders Acetaminophen (Tylenol) 650 mg PO Q6H PRN PRN Reason: Fever Last Admin: 02/08/17 06:30 Dose: 650 mg Hydromorphone HCl (Dilaudid) 0.5 mg IVPUSH Q4H PRN PRN Reason: Pain Last Admin: 02/08/17 06:08 Dose: 0.5 mg Sodium Chloride (Normal Saline) 1,000 mls @ 999 mls/hr IV ONETIME KESHA Last Admin: 02/08/17 04:11 Dose: 999 mls/hr Sodium Chloride (Normal Saline) 1,000 mls @ 150 mls/hr IV ASDIRECTED KESHA Last Admin: 02/08/17 06:12 Dose: 150 mls/hr Ondansetron HCl (Zofran) 4 mg IVPUSH Q6H PRN PRN Reason: Nausea Sodium Chloride (Saline Flush) 10 ml FLUSH ASDIRECTED PRN PRN Reason: Keep Vein Open Last Admin: 02/08/17 04:11 Dose: 10 ml Assessment/Plan Comment:: Patient is a 26 yo female that was admitted due to abdominal and back pain. The patient states she started feeling sick on Wednesday. Her symptoms became worse yesterday and she developed fevers and chills. She started vomiting excessively for a couple of hour and decided to call for emergency services. At the ER she was given fluids, zofran, levaquin and rocephin. She was sent home due to some improvement, but she states she began vomiting again and her symptoms returned, so she returned to ER, which she was then admitted. The patient has a history of Ulcerative colitis and reports she does not see a primary care provider and is not managing it. On physical exam she appears to be in some discomfort. Abdominal exam showed active bowel sounds, and significant tenderness in the upper right quadrant. No guarding splenomegaly, or hepatomegaly noted. She also has some tenderness on bladder palpitation. CVA tenderness is significant on the right flank. Rest of focused exam is unremarkable. Plan: UA with culture -Beta-HcG quantitative CBC CMP Continue IV fluids <Ish Scales - Last Filed: 02/08/17 21:58> H&P History of Present Illness - General Admit Problem/Dx: Admission Diagnosis/Problem Admission Diagnosis/Problem Pyelonephritis Source of Information: Patient, Old Records, Provider, RN Notes Reviewed History Limitations: Reports: No Limitations - History of Present Illness Initial Comments - Free Text/Narative: This is a 26 yo pleasant AA female with past medical hx/o Asthma, IBD (UC not on treatment) and Hx/o Anemia who comes in with complaints of right flank, back and abdominal pain associated with generalized weakness, dizziness, fever/chills , nauseas and vomiting. She denies any history of STDs. No chronic issues. She is sexually active with 1 person. She was initially seen in ED last evening and was diagnosed with pyelonephritis. She was discharged with appropriate medications but unfortunately she did not improve. About 4 hrs after she left ED, she came back for similar complaints. Her initial workup in the emergency department yesterday shows a CBC remarkable for WBC of 11.13, neutrophils of 70.4%, lymphocytes of 12.7%, and eosinophils of 0.1%. Her chemistry is remarkable for carbon dioxide of 20, anion gap of 17.8 , AST of 13, and lipase of 55. She is negative for screening. UA is highly suggestive of urinary tract infection. Patient is being admitted for pyelonephritis. She is full code. H&P Review of Systems - Review of Systems: General: Reports: Fever, Chills, Weakness HEENT: Reports: No Symptoms Pulmonary: Reports: No Symptoms Gastrointestinal: Reports: Abdominal Pain, Nausea, Vomiting Genitourinary: Reports: Frequency, Flank Pain Musculoskeletal: Reports: No Symptoms Skin: Reports: No Symptoms Psychiatric: Denies: Depression, Anxiety, Hallucinations Neurological: Reports: Weakness. Denies: Confusion, Difficulty Walking, Gait Disturbance Hematologic/Lymphatic: Reports: No Symptoms Immunologic: Reports: No Symptoms Exam - Exam Exam: See Below - Vital Signs Vital Signs: Last Vital Signs Temp 37.1 C 02/08/17 16:27 Pulse 64 02/08/17 16:28 Resp 16 02/08/17 16:27 BP 109/61 02/08/17 16:27 Pulse Ox 100 02/08/17 16:28 - Exam General: Alert, Oriented, Cooperative. No: Mild Distress HEENT: Conjunctiva Clear, EACs Clear, EOMI, Hearing Intact, Mucosa Moist & [place] , Nares Patent, Normal Nasal Septum, Posterior Pharynx Clear, Pupils Equal, Pupils Reactive Neck: Supple, Trachea Midline, Full Range of Motion Lungs: Clear to Auscultation, Normal Respiratory Effort Cardiovascular: Regular Rate, Regular Rhythm GI/Abdominal Exam: Normal Bowel Sounds, Soft, No Organomegaly, No Distention, No Abnormal Bruit, No Mass, Pelvis Stable, Tender (mid epigastric). No: Guarding, Rigid, Rebound, Hepatomegaly (Female) Exam: Deferred Rectal (Female) Exam: Deferred Back Exam: Normal Inspection, Full Range of Motion, CVA Tenderness (R) Extremities: Normal Inspection, Normal Range of Motion, Non-Tender, No Pedal Edema, Normal Capillary Refill Peripheral Pulses: 3+: Posterior Tibial (L), Posterior Tibial (R), Dorsalis Pedis (L), Dorsalis Pedis (R) Skin: Warm, Dry, Intact Neuro Extensive - Mental Status: Oriented x3, Normal Cognition, Memory Intact Neuro Extensive - Motor, Sensory, Reflexes: CN II-XII Intact, Normal Gait Psychiatric: Alert, Normal Affect, Normal Mood - Patient Data Lab Results Last 24 hrs: Laboratory Results - last 24 hr 02/08/17 Range/Units 09:40 HCG, Qual Negative (NEGATIVE) *Q Meaningful Use (ADM) - VTE *Q VTE Criteria *Q: - Stroke *Q Stroke Criteria *Q: - AMI *Q AMI Criteria *Q: Problem List Initiated/Reviewed/Updated: Yes Orders Last 24hrs: Active Orders 24 hr Category Date Time Status Patient Status [ADT] Routine ADT 02/08/17 04:55 Active Activity as Tolerated [RC] .Routine Care 02/08/17 06:01 Active Antiembolic Devices [RC] 10,22 Care 02/08/17 09:20 Active Height and Weight [RC] 04 Care 02/08/17 09:18 Active Intake and Output [RC] ,16 Care 02/08/17 09:19 Active Oxygen Therapy [RC] PRN Care 02/08/17 09:18 Active RT Aerosol Therapy [RC] ASDIRECTED Care 02/08/17 09:20 Active Up With Assistance [RC] ASDIRECTED Care 02/08/17 09:18 Active Up ad Gale [RC] ASDIRECTED Care 02/08/17 09:18 Active VTE/DVT Education [RC] PER UNIT ROUTINE Care 02/08/17 09:18 Active Vital Signs [RC] Q4H Care 02/08/17 09:18 Active Consult to Case Management [CONS] Routine Cons 02/08/17 09:20 Active Consult to Bulk Sealer Operator [CONS] Routine Cons 02/08/17 09:20 Active Clear Liquid Diet [DIET] Diet 02/08/17 Breakfast Active BASIC METABOLIC PANEL,BMP [CHEM] AM Lab 02/09/17 05:11 Ordered BASIC METABOLIC PANEL,BMP [CHEM] AM Lab 02/10/17 05:11 Ordered BASIC METABOLIC PANEL,BMP [CHEM] AM Lab 02/11/17 05:11 Ordered BASIC METABOLIC PANEL,BMP [CHEM] AM Lab 02/12/17 05:11 Ordered BASIC METABOLIC PANEL,BMP [CHEM] AM Lab 02/13/17 05:11 Ordered C-REACTIVE PROTEIN [CHEM] AM Lab 02/09/17 05:11 Ordered CBC WITH AUTO DIFF [HEME] AM Lab 02/09/17 05:11 Ordered CBC WITH AUTO DIFF [HEME] AM Lab 02/10/17 05:11 Ordered CBC WITH AUTO DIFF [HEME] AM Lab 02/11/17 05:11 Ordered CBC WITH AUTO DIFF [HEME] AM Lab 02/12/17 05:11 Ordered CBC WITH AUTO DIFF [HEME] AM Lab 02/13/17 05:11 Ordered CULTURE URINE [RM] Stat Lab 02/08/17 11:20 Received MAGNESIUM [CHEM] AM Lab 02/09/17 05:11 Ordered MAGNESIUM [CHEM] AM Lab 02/10/17 05:11 Ordered MAGNESIUM [CHEM] AM Lab 02/11/17 05:11 Ordered MAGNESIUM [CHEM] AM Lab 02/12/17 05:11 Ordered MAGNESIUM [CHEM] AM Lab 02/13/17 05:11 Ordered Acetaminophen [Tylenol] Med 02/08/17 06:16 Active 650 mg PO Q6H PRN Acetaminophen/HYDROcodone [[place] 325-5 MG] Med 02/08/17 09:18 Active 1 tab PO Q4H PRN Albuterol/Ipratropium [DuoNeb 3.0-0.5 MG/3 ML] Med 02/08/17 09:18 Active 3 ml NEB Q4H PRN Bisacodyl [Dulcolax] Med 02/08/17 09:18 Active 5 mg PO DAILY PRN Docusate Sodium [Colace] Med 02/08/17 09:18 Active 100 mg PO BID PRN Docusate Sodium/Sennosides [Senna Plus] Med 02/08/17 09:18 Active 1 tab PO BID PRN HYDROmorphone [Dilaudid] Med 02/08/17 09:18 Active 0.25 mg IVPUSH Q2H PRN HYDROmorphone [Dilaudid] Med 02/08/17 05:44 Active 0.5 mg IVPUSH Q4H PRN LORazepam [Ativan] Med 02/08/17 09:18 Active 1 mg IV Q6H PRN Levofloxacin/Dextrose 5%-Water [Levaquin in D5W 500 MG/ Med 02/09/17 09:00 Active 100 ML] 500 mg Premix Bag 1 bag IV Q24H Magnesium Rep Pharmacy to Dose [Pharmacy to Dose - Med 02/08/17 09:30 Active Magnesium Replacement] 0 dose .XX ASDIRECTED PRN Metoprolol Tartrate [Lopressor] Med 02/08/17 09:18 Active 5 mg IVPUSH Q4H PRN Ondansetron [Zofran] Med 02/08/17 05:44 Active 4 mg IVPUSH Q6H PRN Polyethylene Glycol 3350 [MiraLAX] Med 02/08/17 09:18 Active 17 gm PO DAILY PRN Potassium Rep Pharmacy to Dose [Pharmacy to Dose - Med 02/08/17 09:30 Active Potassium Replacement] 0 dose .XX ASDIRECTED PRN Promethazine [Phenergan] 12.5 mg Med 02/08/17 09:18 Active Sodium Chloride 0.9% [Normal Saline] 50 ml IV Q6H Remove Patch Med 02/11/17 10:15 Active 0 ea TRDERM ONETIME Sodium Chloride 0.9% [Normal Saline] 1,000 ml Med 02/08/17 05:45 Active IV ASDIRECTED Temazepam [Restoril] Med 02/08/17 09:18 Active 15 mg PO BEDTIME PRN hydrALAZINE [Apresoline] Med 02/08/17 09:18 Active 20 mg IVPUSH Q4H PRN Sequential Compression Device [OM.PC] Per Unit Routine Oth 02/08/17 09:19 Ordered Code Status [Resuscitation Status] Routine Resus Stat 02/08/17 05:44 Ordered Medication Orders Acetaminophen (Tylenol) 650 mg PO Q6H PRN PRN Reason: Fever Last Admin: 02/08/17 12:42 Dose: 650 mg Admin: 02/08/17 06:30 Dose: 650 mg Hydrocodone Bitart/Acetaminophen ([place] 325-5 Mg) 1 tab PO Q4H PRN PRN Reason: Pain (moderate 4-6) Last Admin: 02/08/17 17:58 Dose: 1 tab Admin: 02/08/17 10:03 Dose: 1 tab Albuterol/Ipratropium (Duoneb 3.0-0.5 Mg/3 Ml) 3 ml NEB Q4H PRN PRN Reason: Shortness Of Breath/wheezing Bisacodyl (Dulcolax) 5 mg PO DAILY PRN PRN Reason: Constipation Last Admin: 02/08/17 10:19 Dose: 5 mg Docusate Sodium (Colace) 100 mg PO BID PRN PRN Reason: Constipation Hydralazine HCl (Apresoline) 20 mg IVPUSH Q4H PRN PRN Reason: Hypertension Hydromorphone HCl (Dilaudid) 0.5 mg IVPUSH Q4H PRN PRN Reason: Pain Last Admin: 02/08/17 17:53 Dose: 0.5 mg Admin: 02/08/17 10:04 Dose: 0.5 mg Admin: 02/08/17 06:08 Dose: 0.5 mg Hydromorphone HCl (Dilaudid) 0.25 mg IVPUSH Q2H PRN PRN Reason: Pain (severe 7-10) Sodium Chloride (Normal Saline) 1,000 mls @ 150 mls/hr IV ASDIRECTED KESHA Last Admin: 02/08/17 20:44 Dose: 150 mls/hr Infusion: 02/08/17 19:23 Dose: 150 mls/hr Admin: 02/08/17 12:42 Dose: 150 mls/hr Infusion: 02/08/17 12:42 Dose: 150 mls/hr Admin: 02/08/17 06:12 Dose: 150 mls/hr Levofloxacin/Dextrose 500 mg/ (Premix) 100 mls @ 100 mls/hr IV Q24H KESHA Promethazine HCl 12.5 mg/ (Sodium Chloride) 50.5 mls @ 100 mls/hr IV Q6H PRN PRN Reason: Nausea/Vomiting Lorazepam (Ativan) 1 mg IV Q6H PRN PRN Reason: Anxiety Magnesium Sulfate (Pharmacy To Dose - Magnesium Replacement) 0 dose .XX ASDIRECTED PRN PRN Reason: RX TO WATCH MAG LEVEL Metoprolol Tartrate (Lopressor) 5 mg IVPUSH Q4H PRN PRN Reason: Tachycardia Miscellaneous Information (Remove Patch) 0 ea TRDERM ONETIME COUNTS INCLUDE 234 BEDS AT [facility] Ondansetron HCl (Zofran) 4 mg IVPUSH Q6H PRN PRN Reason: Nausea Last Admin: 02/08/17 17:58 Dose: 4 mg Polyethylene Glycol (Miralax) 17 gm PO DAILY PRN PRN Reason: Constipation Last Admin: 02/08/17 20:50 Dose: 17 gm Potassium Chloride (Pharmacy To Dose - Potassium Replacement) 0 dose .XX ASDIRECTED PRN PRN Reason: PHARMACY TO WATCH K+ LEVELS Senna/Docusate Sodium (Senna Plus) 1 tab PO BID PRN PRN Reason: Constipation Sodium Chloride (Saline Flush) 10 ml FLUSH ASDIRECTED PRN PRN Reason: Keep Vein Open Last Admin: 02/08/17 04:11 Dose: 10 ml Temazepam (Restoril) 15 mg PO BEDTIME PRN PRN Reason: Sleep Assessment/Plan Comment:: Assessment/Plan: Acute: UTI/Pyelonephritis - UA highly suggestive for UTI - Pos for right CVA - HcG screening negative - Pending Cx/Sx - Continue IV Levaquin daily Nicotine Dependence - Smoke 0.3 ppd - Nicotine patch daily if needed - Counseled on smoking cessation Chronic: Asthma Hx/o IBD/UC Hx/o Anemia Hx/o Marijuana/Hashish Use Plan: Admit to Med-Surg Routine AM Labs Pain Medications DVT PPx: SCDs SW/CM for d/c planning Additional orders as above Code status: 1
[2017-02-08] MEDS ORDERED: HYDROmorphone 0.5 MG/0.5 ML Syringe IVPUSH PRN (09:18)
[2017-02-08] MEDS ORDERED: Polyethylene Glycol 3350 Powder 17 GM Packet PO PRN (09:18)
[2017-02-08] MEDS ORDERED: Bisacodyl 5 MG Tab PO PRN (09:18)
[2017-02-08] MEDS ORDERED: Albuterol/Ipratropium 3.0-0.5 MG/3 ML Neb Soln NEB PRN (09:18)
[2017-02-08] MEDS ORDERED: Promethazine 12.5 MG in Sodium Chloride 0.9% 50 ML IV PRN (09:18)
[2017-02-08] MEDS ORDERED: hydrALAZINE 20 MG/ML SDV IVPUSH PRN (09:18)
[2017-02-08] MEDS ORDERED: Temazepam 15 MG Cap PO PRN (09:18)
[2017-02-08] MEDS ORDERED: Metoprolol Tartrate 5 MG/5 ML SDV IVPUSH PRN (09:18)
[2017-02-08] MEDS ORDERED: LORazepam 2 MG/ML MDV IV PRN (09:18)
[2017-02-08] MEDS ORDERED: Docusate Sodium 100 MG Cap PO PRN (09:18)
[2017-02-08] MEDS: Acetaminophen/HYDROcodone 325-5 MG Tab PO PRN ×2 (10:03→17:58)
[2017-02-08] MEDS ORDERED: Scopolamine 1.5 MG Transdermal Patch TOP ONE (10:15)
[2017-02-08] MEDS: Ondansetron 4 MG/2 ML SDV IVPUSH PRN (17:58)
[2017-02-09] MEDS: Ondansetron 4 MG/2 ML SDV IVPUSH PRN ×3 (00:14→13:39)
[2017-02-09] MEDS: HYDROmorphone 0.5 MG/0.5 ML Syringe IVPUSH PRN ×2 (00:15→09:37)
[2017-02-09] MEDS: Acetaminophen/HYDROcodone 325-5 MG Tab PO PRN ×4 (02:25→20:54)
[2017-02-09] MEDS: Sodium Chloride 0.9% 1,000 ML IV SCH ×2 (05:27→13:38)
[2017-02-09] MEDS: Levofloxacin/Dextrose 5%-Water 500 MG in Premix Bag 1 BAG IV SCH (08:23)
[2017-02-09] MEDS ORDERED: Pantoprazole 40 MG Vial IVPUSH ONE ×2 (13:35→16:45)
--- NOTE | 2017-02-09 13:43 | PCM.PN ---
- General Info Date of Service: 02/09/17 Admission Dx/Problem (Free Text): Admission Diagnosis/Problem Admission Diagnosis/Problem Pyelonephritis "Ida" is a 26yo female here with dx pyelonephritis with ongoiong and persistent n/v and abdominal/back pain- RUQ, Rt flank pain. She continues to have n/v that is intractable. She did not respond well to zofran, was given scopolamine patch last evening and states still has nausea this morning. She was tried on clear liquids aand continues with nausea. She is getting levaquin IV for UTI with UC with GNR thus far. She has hx of UC, currently untreated and does not follow up with a PCP here in [place] since moving here around 2 years ago. Functional Status: Reports: Ambulating, Urinating. Denies: Pain Controlled, Tolerating Diet - Review of Systems General: Denies: Fever HEENT: Reports: No Symptoms Pulmonary: Reports: No Symptoms. Denies: Shortness of Breath (denies pain to abd/back with deep breaths), Cough Cardiovascular: Reports: No Symptoms Gastrointestinal: Reports: Abdominal Pain, Decreased Appetite, Nausea, Vomiting. Denies: Diarrhea Genitourinary: Reports: Dysuria, Frequency, Burning, Flank Pain (rt side). Denies: Hematuria Neurological: Reports: No Symptoms Psychiatric: Reports: No Symptoms - Patient Data Vitals - Most Recent: Last Vital Signs Temp 98.4 F 02/09/17 12:45 Pulse 49 L 02/09/17 12:45 Resp 20 02/09/17 12:45 BP 92/66 02/09/17 13:12 Pulse Ox 100 02/09/17 12:45 Weight - Most Recent: 152 lb 4.8 oz I&O - Last 24 Hours: Intake & Output 02/08/17 02/09/17 02/09/17 22:59 06:59 14:59 Intake Total 2059 2210 Output Total 900 1500 Balance 1159 710 Lab Results Last 24 Hours: Laboratory Results - last 24 hr 02/09/17 02/09/17 Range/Units 06:00 06:00 WBC 5.07 (3.98-10.04) K/mm3 RBC 3.91 L (3.98-5.22) M/mm3 Hgb 11.5 (11.2-15.7) gm/L Hct 34.3 (34.1-44.9) % MCV 87.7 (79.4-94.8) fl MCH 29.4 (25.6-32.2) pg MCHC 33.5 (32.2-35.5) g/dl RDW Std Deviation 41.4 (36.4-46.3) fL Plt Count 230 (182-369) K/mm3 MPV 9.3 L (9.4-12.3) fl Neut % (Auto) 66.5 (34.0-71.1) % Lymph % (Auto) 21.3 (19.3-51.7) % [place] % (Auto) 10.8 (4.7-12.5) % Eos % (Auto) 1.0 (0.7-5.8) Baso % (Auto) 0.4 (0.1-1.2) % Neut # (Auto) 3.37 (1.56-6.13) K/mm3 Lymph # (Auto) 1.08 L (1.18-3.74) K/mm3 [place] # (Auto) 0.55 H (0.24-0.36) K/mm3 Eos # (Auto) 0.05 (0.04-0.36) K/mm3 Baso # (Auto) 0.02 (0.01-0.08) K/mm3 Sodium 139 (136-145) mEq/L Potassium 4.2 (3.5-5.1) mEq/L Chloride 110 H (98-107) mEq/L Carbon Dioxide 21 (21-32) mEq/L Anion Gap 12.2 (5-15) BUN 6 L (7-18) mg/dL Creatinine 0.8 (0.55-1.02) mg/dL Est Cr Clr Drug Dosing 75.87 mL/min Estimated GFR (MDRD) > 60 (>60) mL/min BUN/Creatinine Ratio 7.5 L (14-18) Glucose 79 (74-106) mg/dL Calcium 8.3 L (8.5-10.1) mg/dL Magnesium 1.8 (1.8-2.4) mg/dl C-Reactive Protein 10.4 H* (<1.0) mg/dL Med Orders - Current: Current Medications Acetaminophen (Tylenol) 650 mg PO Q6H PRN PRN Reason: Fever Last Admin: 02/08/17 12:42 Dose: 650 mg Hydrocodone Bitart/Acetaminophen ([place] 325-5 Mg) 1 tab PO Q4H PRN PRN Reason: Pain (moderate 4-6) Last Admin: 02/09/17 11:07 Dose: 1 tab Albuterol/Ipratropium (Duoneb 3.0-0.5 Mg/3 Ml) 3 ml NEB Q4H PRN PRN Reason: Shortness Of Breath/wheezing Bisacodyl (Dulcolax) 5 mg PO DAILY PRN PRN Reason: Constipation Last Admin: 02/08/17 10:19 Dose: 5 mg Docusate Sodium (Colace) 100 mg PO BID PRN PRN Reason: Constipation Hydralazine HCl (Apresoline) 20 mg IVPUSH Q4H PRN PRN Reason: Hypertension Sodium Chloride (Normal Saline) 1,000 mls @ 150 mls/hr IV ASDIRECTED [facility] Last Admin: 02/09/17 05:27 Dose: 150 mls/hr Levofloxacin/Dextrose 500 mg/ (Premix) 100 mls @ 100 mls/hr IV Q24H KESHA Last Admin: 02/09/17 08:23 Dose: 100 mls/hr Promethazine HCl 12.5 mg/ (Sodium Chloride) 50.5 mls @ 100 mls/hr IV Q6H PRN PRN Reason: Nausea/Vomiting Magnesium Sulfate (Pharmacy To Dose - Magnesium Replacement) 0 dose .XX ASDIRECTED PRN PRN Reason: RX TO WATCH MAG LEVEL Metoprolol Tartrate (Lopressor) 5 mg IVPUSH Q4H PRN PRN Reason: Tachycardia Miscellaneous Information (Remove Patch) 0 ea TRDERM ONETIME [facility] Ondansetron HCl (Zofran) 4 mg IVPUSH Q6H PRN PRN Reason: Nausea Last Admin: 02/09/17 08:24 Dose: 4 mg Pantoprazole Sodium (Protonix Iv) 40 mg IVPUSH ONETIME ONE Stop: 02/09/17 13:36 Pantoprazole Sodium (Protonix) 40 mg PO DAILY [facility] Polyethylene Glycol (Miralax) 17 gm PO DAILY PRN PRN Reason: Constipation Last Admin: 02/08/17 20:50 Dose: 17 gm Potassium Chloride (Pharmacy To Dose - Potassium Replacement) 0 dose .XX ASDIRECTED PRN PRN Reason: PHARMACY TO WATCH K+ LEVELS Senna/Docusate Sodium (Senna Plus) 1 tab PO BID PRN PRN Reason: Constipation Sodium Chloride (Saline Flush) 10 ml FLUSH ASDIRECTED PRN PRN Reason: Keep Vein Open Last Admin: 02/08/17 04:11 Dose: 10 ml Temazepam (Restoril) 15 mg PO BEDTIME PRN PRN Reason: Sleep Discontinued Medications Hydromorphone HCl (Dilaudid) 0.5 mg IVPUSH Q4H PRN PRN Reason: Pain Last Admin: 02/09/17 09:37 Dose: 0.5 mg Hydromorphone HCl (Dilaudid) 0.25 mg IVPUSH Q2H PRN PRN Reason: Pain (severe 7-10) Sodium Chloride (Normal Saline) 1,000 mls @ 999 mls/hr IV ONETIME [facility]ESHA Last Admin: 02/08/17 04:11 Dose: 999 mls/hr Lorazepam (Ativan) 1 mg IV Q6H PRN PRN Reason: Anxiety Ondansetron HCl (Zofran) 4 mg IVPUSH ONETIME ONE Stop: 02/08/17 03:56 Last Admin: 02/08/17 04:11 Dose: 4 mg Scopolamine (Transderm-Scop) 1.5 mg TOP ONETIME ONE Stop: 02/08/17 10:16 Last Admin: 02/08/17 10:19 Dose: 1.5 mg - Exam Quality Assessment: DVT Prophylaxis General: Alert, Oriented, No Acute Distress HEENT: Pupils Equal, EOMI, Mucous Membr. Moist/[place] Neck: Supple Lungs: Clear to Auscultation, Normal Respiratory Effort, Decreased Breath Sounds (bases) Cardiovascular: Regular Rate, Regular Rhythm GI/Abdominal Exam: Normal Bowel Sounds, Soft, Tender (epigastric and RUQ pain with palpation). No: Hepatomegaly, Splenomegaly (Female) Exam: Deferred Back Exam: CVA Tenderness (R). No: CVA Tenderness (L) Extremities: Normal Inspection, No Pedal Edema, Normal Capillary Refill Peripheral Pulses: 2+: Dorsalis Pedis (L), Dorsalis Pedis (R) Neurological: No New Focal Deficit Psy/Mental Status: Alert, Normal Affect, Normal Mood - Problem List & Annotations (1) Pyelonephritis SNOMED Code(s): 56988833 Code(s): N12 - TUBULO-INTERSTITIAL NEPHRITIS, NOT SPCF ACUTE OR CHRONIC Status: Acute Priority: High Current Visit: Yes (2) Abdominal pain SNOMED Code(s): 39572433 Code(s): R10.9 - UNSPECIFIED ABDOMINAL PAIN Status: Acute Priority: High Current Visit: Yes - Problem List Review Problem List Initiated/Reviewed/Updated: Yes - My Orders Last 24 Hours: My Active Orders 02/09/17 13:33 HELICOBACTER PYLORI AB IGG [CHEM] Routine 02/09/17 13:34 Abdomen Ltd [US] Routine HEPATIC FUNCTION PANEL,HFP [CHEM] Routine 02/09/17 13:35 Pantoprazole [ProTONIX IV] 40 mg IVPUSH ONETIME ONE 02/09/17 13:36 LIPASE [CHEM] Routine 02/10/17 09:00 Pantoprazole [ProTONIX] 40 mg PO DAILY - Plan Plan:: Assessment/Plan: Acute: UTI/Pyelonephritis - UA highly suggestive for UTI; UC with GNR thus far - Pos for right CVA - HcG screening negative - Continue IV Levaquin daily Epigastric and RUQ abd pain with persistent n/v -May be d/t pyelonephritis but will r/o other etiology -Hpylori, if serum + will obtain stool -Abdominal US to r/o gallbladder etiology -Repeat lipase, Lipase in ED was 55 -Cont clear liquid diet until n/v resolved -Scheduled zofran and PRN phenergan, cont scop patch for nausea -IV protonix now and start PO in the morning -If not improving may consider referral to general surgery as outpatient for EGD eval. Nicotine Dependence - Smoke 0.3 ppd - Nicotine patch daily if needed - Counseled on smoking cessation Chronic: Asthma- asymptomatic Hx/o IBD/UC- untreated for at least 2 years Hx/o Anemia Hx/o Marijuana/Hashish Use Plan: Admit to Med-Surg Routine AM Labs Pain Medications---DC IV pain medications, has been hypotensive at times, suspect due to narcotic use. DVT PPx: SCDs SW/CM for d/c planning--plan to wean IV pain meds, control n/v, other testing as above, advance diet as tolerated. Plan dc home tomorrow if better. Additional orders as above Code status: 1 No local PCP- will refer to Dr. Moses after discharge for Primary Care
--- NOTE | 2017-02-09 16:52 | US ---
Limited abdominal ultrasound: Multiple real-time images of the upper right abdomen were obtained. Comparison: No previous abdominal ultrasound or abdominal CT exam. Liver shows no focal parenchymal abnormality. Gallbladder shows no gallstones. Minimal sludge is seen within the gallbladder. No gallbladder wall thickening or biliary duct dilatation is seen. Right kidney shows no hydronephrosis or mass. Right kidney has a length of 10.0 cm. Pancreas appears within normal limits. Inferior vena cava is patent. Portal vein shows normal hepatopedal flow. Impression: 1. Minimal sludge within the gallbladder. 2. Right upper quadrant abdominal ultrasound is otherwise unremarkable. Diagnostic code #2
--- NOTE | 2017-02-09 20:27 | PCM.SN ---
- Free Text/Narrative Note: 2000 in room IV start right hand #[id number]. good flush good blood return out room at 2025
[2017-02-10] MEDS ORDERED: Sodium Chloride 0.9% 500 ML IV ONE (00:30)
[2017-02-10] MEDS: Acetaminophen/HYDROcodone 325-5 MG Tab PO PRN ×2 (08:10→20:29)
[2017-02-10] MEDS: Levofloxacin/Dextrose 5%-Water 500 MG in Premix Bag 1 BAG IV SCH (08:10)
[2017-02-10] MEDS: Pantoprazole 40 MG Tab.CR PO SCH (08:10)
[2017-02-10] MEDS: Levofloxacin 500 MG Tab PO SCH (08:37)
[2017-02-10] MEDS ORDERED: Metoclopramide 10 MG/2 ML SDV IVPUSH ONE ×2 (09:21→12:03)
[2017-02-10] MEDS: Sucralfate Suspension 1 GM/10 ML Cup PO SCH ×5 (09:27→22:02)
[2017-02-10] MEDS: Acetaminophen 325 MG Tab PO PRN (09:33)
--- NOTE | 2017-02-10 13:16 | PCM.PN ---
- General Info Date of Service: 02/10/17 Admission Dx/Problem (Free Text): Admission Diagnosis/Problem Admission Diagnosis/Problem Pyelonephritis "Ida" is a 26yo female here with dx pyelonephritis with ongoiong and persistent n/v and abdominal/back pain- RUQ, Rt flank pain. She tried soft diet this morning and triggered nausea and wretching. Zofran has not been helpful in the past; phenergran had made her sleepy and with mild hypotension so I have discontinued that. Tried reglan with good results- nausea is resolved just prior to lunch. Pain is improved to right flank/back. She is up and moving around better today. Studies yesterday to r/o other causes of RUQ/Rt flank and back pain were all negative including h.pylori, lipase and abd US- only showed mild amt of biliary sludge but no other acute findings. She continues on levaquin for UTI/pyelonephritis. She has hx of UC, currently untreated and does not follow up with a PCP here in [place] since moving here around 2 years ago. Functional Status: Reports: Pain Controlled, Ambulating, Urinating - Review of Systems General: Reports: Weakness, Fatigue. Denies: Fever HEENT: Reports: No Symptoms Pulmonary: Reports: No Symptoms. Denies: Shortness of Breath, Cough Cardiovascular: Reports: No Symptoms. Denies: Chest Pain, Dyspnea on Exertion Gastrointestinal: Reports: Abdominal Pain (improved), Nausea. Denies: Vomiting Genitourinary: Denies: Dysuria, Frequency, Burning Musculoskeletal: Reports: Back Pain (right back/flank) Neurological: Reports: No Symptoms Psychiatric: Reports: No Symptoms. Denies: Depression (denies), Anxiety (denies ) - Patient Data Vitals - Most Recent: Last Vital Signs Temp 98.2 F 02/10/17 12:09 Pulse 54 L 02/10/17 12:09 Resp 18 02/10/17 12:09 BP 102/56 L 02/10/17 12:09 Pulse Ox 100 02/10/17 12:09 Weight - Most Recent: 150 lb 11.2 oz I&O - Last 24 Hours: Intake & Output 02/09/17 02/10/17 02/10/17 22:59 06:59 14:59 Intake Total 2476 1850 340 Output Total 1800 1200 Balance 676 650 340 Lab Results Last 24 Hours: Laboratory Results - last 24 hr 02/09/17 02/09/17 02/10/17 Range/Units 06:00 13:33 05:51 WBC 3.89 L (3.98-10.04) K/mm3 RBC 3.95 L (3.98-5.22) M/mm3 Hgb 11.5 (11.2-15.7) gm/L Hct 34.3 (34.1-44.9) % MCV 86.8 (79.4-94.8) fl MCH 29.1 (25.6-32.2) pg MCHC 33.5 (32.2-35.5) g/dl RDW Std Deviation 41.6 (36.4-46.3) fL Plt Count 214 (182-369) K/mm3 MPV 9.4 (9.4-12.3) fl Neut % (Auto) 53.5 (34.0-71.1) % Lymph % (Auto) 28.0 (19.3-51.7) % [place] % (Auto) 14.1 H (4.7-12.5) % Eos % (Auto) 4.1 (0.7-5.8) Baso % (Auto) 0.3 (0.1-1.2) % Neut # (Auto) 2.08 (1.56-6.13) K/mm3 Lymph # (Auto) 1.09 L (1.18-3.74) K/mm3 [place] # (Auto) 0.55 H (0.24-0.36) K/mm3 Eos # (Auto) 0.16 (0.04-0.36) K/mm3 Baso # (Auto) 0.01 (0.01-0.08) K/mm3 Sodium (136-145) mEq/L Potassium (3.5-5.1) mEq/L Chloride (98-107) mEq/L Carbon Dioxide (21-32) mEq/L Anion Gap (5-15) BUN (7-18) mg/dL Creatinine (0.55-1.02) mg/dL Est Cr Clr Drug Dosing mL/min Estimated GFR (MDRD) (>60) mL/min BUN/Creatinine Ratio (14-18) Glucose (74-106) mg/dL Calcium (8.5-10.1) mg/dL Magnesium (1.8-2.4) mg/dl Total Bilirubin 0.3 (0.2-1.0) mg/dL Direct Bilirubin 0.10 (0.0-0.2) mg/dl Indirect Bilirubin 0.20 AST 18 (15-37) U/L ALT 19 (14-59) U/L Alkaline Phosphatase 54 (46-116) U/L C-Reactive Protein (<1.0) mg/dL Total Protein 5.7 L (6.4-8.2) g/dl Albumin 2.7 L (3.4-5.0) g/dl Globulin 3.0 gm/dL Albumin/Globulin Ratio 0.9 L (1-2) Lipase 54 L (73-393) U/L H. pylori IgG Antibody Negative (NEGATIVE) 02/10/17 02/10/17 Range/Units 05:51 05:51 WBC (3.98-10.04) K/mm3 RBC (3.98-5.22) M/mm3 Hgb (11.2-15.7) gm/L Hct (34.1-44.9) % MCV (79.4-94.8) fl MCH (25.6-32.2) pg MCHC (32.2-35.5) g/dl RDW Std Deviation (36.4-46.3) fL Plt Count (182-369) K/mm3 MPV (9.4-12.3) fl Neut % (Auto) (34.0-71.1) % Lymph % (Auto) (19.3-51.7) % [place] % (Auto) (4.7-12.5) % Eos % (Auto) (0.7-5.8) Baso % (Auto) (0.1-1.2) % Neut # (Auto) (1.56-6.13) K/mm3 Lymph # (Auto) (1.18-3.74) K/mm3 [place] # (Auto) (0.24-0.36) K/mm3 Eos # (Auto) (0.04-0.36) K/mm3 Baso # (Auto) (0.01-0.08) K/mm3 Sodium 142 (136-145) mEq/L Potassium 3.9 (3.5-5.1) mEq/L Chloride 111 H (98-107) mEq/L Carbon Dioxide 22 (21-32) mEq/L Anion Gap 12.9 (5-15) BUN 5 L (7-18) mg/dL Creatinine 0.7 (0.55-1.02) mg/dL Est Cr Clr Drug Dosing 86.71 mL/min Estimated GFR (MDRD) > 60 (>60) mL/min BUN/Creatinine Ratio 7.1 L (14-18) Glucose 77 (74-106) mg/dL Calcium 8.5 (8.5-10.1) mg/dL Magnesium 1.8 (1.8-2.4) mg/dl Total Bilirubin (0.2-1.0) mg/dL Direct Bilirubin (0.0-0.2) mg/dl Indirect Bilirubin AST (15-37) U/L ALT (14-59) U/L Alkaline Phosphatase (46-116) U/L C-Reactive Protein 6.4 H* (<1.0) mg/dL Total Protein (6.4-8.2) g/dl Albumin (3.4-5.0) g/dl Globulin gm/dL Albumin/Globulin Ratio (1-2) Lipase (73-393) U/L H. pylori IgG Antibody (NEGATIVE) Med Orders - Current: Current Medications Acetaminophen (Tylenol) 650 mg PO Q6H PRN PRN Reason: Fever Last Admin: 02/10/17 09:33 Dose: 650 mg Hydrocodone Bitart/Acetaminophen ([place] 325-5 Mg) 1 tab PO Q4H PRN PRN Reason: Pain (moderate 4-6) Last Admin: 02/10/17 08:10 Dose: 1 tab Albuterol/Ipratropium (Duoneb 3.0-0.5 Mg/3 Ml) 3 ml NEB Q4H PRN PRN Reason: Shortness Of Breath/wheezing Bisacodyl (Dulcolax) 5 mg PO DAILY PRN PRN Reason: Constipation Last Admin: 02/08/17 10:19 Dose: 5 mg Docusate Sodium (Colace) 100 mg PO BID PRN PRN Reason: Constipation Hydralazine HCl (Apresoline) 20 mg IVPUSH Q4H PRN PRN Reason: Hypertension Levofloxacin (Levaquin) 500 mg PO DAILY [facility] Last Admin: 02/10/17 08:37 Dose: 500 mg Magnesium Sulfate (Pharmacy To Dose - Magnesium Replacement) 0 dose .XX ASDIRECTED PRN PRN Reason: RX TO WATCH MAG LEVEL Metoclopramide HCl (Reglan) 5 mg PO TIDAC PRN PRN Reason: Nausea/Vomiting Metoprolol Tartrate (Lopressor) 5 mg IVPUSH Q4H PRN PRN Reason: Tachycardia Miscellaneous Information (Remove Patch) 0 ea TRDERM ONETIME [facility] Ondansetron HCl (Zofran) 4 mg IVPUSH Q6H PRN PRN Reason: Nausea Last Admin: 02/09/17 13:39 Dose: 4 mg Pantoprazole Sodium (Protonix) 40 mg PO DAILY [facility] Last Admin: 02/10/17 08:10 Dose: 40 mg Polyethylene Glycol (Miralax) 17 gm PO DAILY PRN PRN Reason: Constipation Last Admin: 02/08/17 20:50 Dose: 17 gm Potassium Chloride (Pharmacy To Dose - Potassium Replacement) 0 dose .XX ASDIRECTED PRN PRN Reason: PHARMACY TO WATCH K+ LEVELS Senna/Docusate Sodium (Senna Plus) 1 tab PO BID PRN PRN Reason: Constipation Sodium Chloride (Saline Flush) 10 ml FLUSH ASDIRECTED PRN PRN Reason: Keep Vein Open Last Admin: 02/08/17 04:11 Dose: 10 ml Sucralfate (Carafate) 1 gm PO QIDACANDBED [facility] Last Admin: 02/10/17 10:14 Dose: Not Given Temazepam (Restoril) 15 mg PO BEDTIME PRN PRN Reason: Sleep Discontinued Medications Hydromorphone HCl (Dilaudid) 0.5 mg IVPUSH Q4H PRN PRN Reason: Pain Last Admin: 02/09/17 09:37 Dose: 0.5 mg Hydromorphone HCl (Dilaudid) 0.25 mg IVPUSH Q2H PRN PRN Reason: Pain (severe 7-10) Sodium Chloride (Normal Saline) 1,000 mls @ 999 mls/hr IV ONETIME [facility] Last Admin: 02/08/17 04:11 Dose: 999 mls/hr Sodium Chloride (Normal Saline) 1,000 mls @ 150 mls/hr IV ASDIRECTED [facility] Last Admin: 02/09/17 13:38 Dose: 150 mls/hr Levofloxacin/Dextrose 500 mg/ (Premix) 100 mls @ 100 mls/hr IV Q24H KESHA Last Infusion: 02/09/17 09:23 Dose: Infused Promethazine HCl 12.5 mg/ (Sodium Chloride) 50.5 mls @ 100 mls/hr IV Q6H PRN PRN Reason: Nausea/Vomiting Last Admin: 02/09/17 22:16 Dose: 100 mls/hr Sodium Chloride (Normal Saline) 1,000 mls @ 125 mls/hr IV ASDIRECTED ONE Stop: 02/10/17 08:29 Last Admin: 02/10/17 00:46 Dose: 125 mls/hr Lorazepam (Ativan) 1 mg IV Q6H PRN PRN Reason: Anxiety Metoclopramide HCl (Reglan) 5 mg IVPUSH ONETIME ONE Stop: 02/10/17 09:22 Last Admin: 02/10/17 09:28 Dose: 5 mg Metoclopramide HCl (Reglan) 5 mg IVPUSH ONETIME ONE Stop: 02/10/17 12:04 Ondansetron HCl (Zofran) 4 mg IVPUSH ONETIME ONE Stop: 02/08/17 03:56 Last Admin: 02/08/17 04:11 Dose: 4 mg Pantoprazole Sodium (Protonix Iv) 40 mg IVPUSH ONETIME ONE Stop: 02/09/17 13:36 Last Admin: 02/09/17 16:43 Dose: Not Given Pantoprazole Sodium (Protonix Iv) 40 mg IVPUSH ONETIME ONE Stop: 02/09/17 16:46 Last Admin: 02/09/17 16:48 Dose: 40 mg Scopolamine (Transderm-Scop) 1.5 mg TOP ONETIME ONE Stop: 02/08/17 10:16 Last Admin: 02/08/17 10:19 Dose: 1.5 mg - Exam Quality Assessment: DVT Prophylaxis General: Alert, Oriented, No Acute Distress HEENT: Pupils Equal, EOMI, Mucous Membr. Moist/[place] Neck: Supple Lungs: Clear to Auscultation, Normal Respiratory Effort Cardiovascular: Regular Rate, Regular Rhythm GI/Abdominal Exam: Normal Bowel Sounds, Soft, Non-Tender (epigastric tenderness that was present yesterday is improved to resolved today). No: Guarding, Rigid , Rebound, Tender (Female) Exam: Deferred Extremities: No Pedal Edema, Normal Capillary Refill Peripheral Pulses: 2+: Dorsalis Pedis (L), Dorsalis Pedis (R) Neurological: No New Focal Deficit Psy/Mental Status: Alert, Normal Affect, Normal Mood - Problem List & Annotations (1) Pyelonephritis SNOMED Code(s): 35213906 Code(s): N12 - TUBULO-INTERSTITIAL NEPHRITIS, NOT SPCF ACUTE OR CHRONIC Status: Acute Priority: High Current Visit: Yes (2) Abdominal pain SNOMED Code(s): 61874254 Code(s): R10.9 - UNSPECIFIED ABDOMINAL PAIN Status: Acute Priority: High Current Visit: Yes - Problem List Review Problem List Initiated/Reviewed/Updated: Yes - My Orders Last 24 Hours: My Active Orders 02/10/17 06:23 Ambulate [RC] QID 02/10/17 09:00 Levofloxacin [Levaquin] 500 mg PO DAILY Pantoprazole [ProTONIX] 40 mg PO DAILY 02/10/17 09:30 Sucralfate [Carafate] 1 gm PO QIDACANDBED 02/10/17 10:56 Notify Provider Consults [RC] ASDIRECTED 02/10/17 12:04 Metoclopramide [Reglan] 5 mg PO TIDAC PRN 02/10/17 Breakfast Soft Diet [DIET] - Plan Plan:: Assessment/Plan: Acute: UTI/Pyelonephritis - UA highly suggestive for UTI; UC with GNR- ecoli + as of this afternoon - Pos for right CVA - HcG screening negative - Continue IV Levaquin daily- will switch to PO at DC Epigastric and RUQ abd pain with persistent n/v -May be d/t pyelonephritis but will r/o other etiology -Hpylori, if serum + will obtain stool---serum study was negative -Abdominal US to r/o gallbladder etiology- minimal sludge present, no other acute findings -Repeat lipase, Lipase in ED was 55-- normal -Reglan tried this morning with relief; will repeat just prior to lunch and order PRN prior to meals -PO protonix, Carafate AC/HS -If not improving may consider referral to general surgery as outpatient for EGD eval. Nicotine Dependence - Smoke 0.3 ppd - Nicotine patch daily if needed - Counseled on smoking cessation Chronic: Asthma- asymptomatic Hx/o IBD/UC- untreated for at least 2 years Hx/o Anemia Hx/o Marijuana/Hashish Use Plan: Admit to Med-Surg Routine AM Labs Pain Medications---DC IV pain medications, has been hypotensive at times, suspect due to narcotic use and phenergran may have been contributing as well. DVT PPx: SCDs SW/CM for d/c planning--she is off of IV pain medications, tolerating orals with improved pain. Reglan has worked thus far today for nausea, if tolerates lunch will advance to reg diet for supper; if tolerates supper consider discharge later this evening. . Additional orders as above Reviewed with patient possible Dr. Cornell consult for suspected mental health concerns- she declines this consult- states "I am not a depressed person and dont have any anxiety, I don't need to talk to him but thank you". Code status: 1 No local PCP- will refer to Dr. Moses after discharge for Primary Care; talked with her about establishing PCP today, she is in agreement to see Dr. Moses.
[2017-02-10] MEDS: Metoclopramide 5 MG Tab PO PRN (16:25)
[2017-02-11] MEDS: Acetaminophen/HYDROcodone 325-5 MG Tab PO PRN (02:23)
[2017-02-11] MEDS: Sucralfate Suspension 1 GM/10 ML Cup PO SCH (06:14)
--- NOTE | 2017-02-11 07:09 | PCM.DCSUM1 ---
Discharge Summary - Hospital Course Free Text/Narrative:: This is a 26 yo pleasant AA female with past medical hx/o Asthma, IBD (UC not on treatment) and Hx/o Anemia who comes in with complaints of right flank, back and abdominal pain associated with generalized weakness, dizziness, fever/chills , nauseas and vomiting. She denies any history of STDs. No chronic issues. She is sexually active with 1 person. She was initially seen in ED last evening and was diagnosed with pyelonephritis. She was given levaquin and rocephin IV and discharged with PO levaquin. She had n/v, unable to keep oral meds down; 4 hrs later she returned to the ED. Her initial workup in the emergency department yesterday shows a CBC remarkable for WBC of 11.13, neutrophils of 70.4%, lymphocytes of 12.7%, and eosinophils of 0.1%. Her chemistry is remarkable for carbon dioxide of 20, anion gap of 17.8 , AST of 13, and lipase of 55. She is negative for screening. UA is highly suggestive of urinary tract infection with UC pending. Patient is being admitted for AUTI and pyelonephritis. She is full code. UC did grow out ecoli, sensitive to levaquin. She continued to have nausea and wretching which was difficult to control; essentially unresoponsive to zofran, phenergan dropped her b/p, scopolamine patch was placed but she continued to have n/v. Reglan was tried with success. Meanwhile other causes for n/v were ruled out with negative h.pylori, normal LFT's, normal abd US aside from minimal sludge noted in gallbladder. She states hx of UC but has not seen or been treated for this for years, she was not having diarrhea or loose stools. All labs including CRP normalized. She was tolerating meals and up and ambulatory. She will be dc'd home today with PO levaquin and reglan. She does not have a PCP so will establish care with Dr. Moses at [facility] within one week of discharge. - Discharge Data Discharge Date: 02/11/17 (admit date 02/08/17) Discharge Disposition: Home, Self-Care 01 Condition: Good - Discharge Diagnosis/Problem(s) (1) Pyelonephritis SNOMED Code(s): 81294540 ICD Code: N12 - TUBULO-INTERSTITIAL NEPHRITIS, NOT SPCF ACUTE OR CHRONIC Status: Acute Priority: High Current Visit: Yes (2) Abdominal pain SNOMED Code(s): 02542699 ICD Code: R10.9 - UNSPECIFIED ABDOMINAL PAIN Status: Acute Priority: High Current Visit: Yes - Patient Summary/Data Operative Procedure(s) Performed: None Complications: None Consults: Consultations 02/08/17 09:20 Consult to Case Management [CONS] Routine Consult to [facility] [CONS] Routine Labs Pending at D/C: None Recommended Follow-up Testing/Procedures: Patient DC instructions: Follow up with/establish care with PCP- follow up within one week. Push fluids Stop smoking; quit line for assistance [id number]. Finish all antibiotics as prescribed Probiotic once daily; yogurt daily Planned Operative Procedure(s) after DC: None Hospital Course: As above - Patient Instructions Diet: Usual Diet as Tolerated, Drink 8-10+ Glasses/Day Activity: As Tolerated Driving: May Drive Today Showering/Bathing: May Shower Notify Provider of: Fever, Increased Pain, Nausea and/or Vomiting - Discharge Plan Prescriptions/Med Rec: Levofloxacin [Levaquin] 500 mg PO DAILY #7 tablet Metoclopramide [Reglan] 5 mg PO TIDAC PRN #20 tablet PRN Reason: Nausea/Vomiting Pantoprazole [ProTONIX] 40 mg PO DAILY #30 tab.cr Home Medications: Home Meds Levofloxacin [Levaquin] 500 mg PO DAILY #7 tablet 02/11/17 [Rx] Metoclopramide [Reglan] 5 mg PO TIDAC PRN #20 tablet 02/11/17 [Rx] Pantoprazole [ProTONIX] 40 mg PO DAILY #30 tab.cr 02/11/17 [Rx] Patient Handouts: Smoking Hazards, Cannabis Use Disorder, Pyelonephritis, Adult , [id number], Urinary Tract Infection, Adult, Smoking Cessation, Tips for Success, Ulcerative Colitis, Adult, Tobacco Use Disorder Referrals: Geovanna Moses MD [Physician] - 02/15/17 11:00 am (appointment is at 11:00 am at [facility] come 30 minutes prior to the appointment to register and there is a 100 $ co-pay if you are self pay. Bring photo ID & insurance card if you have insurance.) - Discharge Summary/Plan Comment DC Time >30 min.: Yes (40 min) - General Info Date of Service: 02/11/17 Admission Dx/Problem (Free Text: Admission Diagnosis/Problem Admission Diagnosis/Problem Pyelonephritis "Ida" is a 26yo female here with dx pyelonephritis with ongoiong and persistent n/v and abdominal/back pain- RUQ, Rt flank pain. Pain is improved; n/v has improved/resolved with reglan. She tolerated regular meal last night. Studies obtained 2 days ago to r/o other causes of RUQ/Rt flank and back pain were all negative including h.pylori, lipase and abd US- only showed mild amt of biliary sludge but no other acute findings. She continues on levaquin for UTI/pyelonephritis. UC from ED urine is with ecoli , sensitive to Levaquin. She has hx of UC, currently untreated and does not follow up with a PCP here in [place] since moving here around 2 years ago. Functional Status: Reports: Pain Controlled, Tolerating Diet, Ambulating, Urinating. Denies: New Symptoms - Review of Systems General: Reports: No Symptoms. Denies: Fever HEENT: Reports: No Symptoms Pulmonary: Reports: No Symptoms Cardiovascular: Reports: No Symptoms Gastrointestinal: Reports: No Symptoms. Denies: Diarrhea, Nausea (resolved), Vomiting Genitourinary: Reports: No Symptoms, Flank Pain (minimal to rt side, significantly improved). Denies: Dysuria, Frequency, Burning, Pain, Urgency, Hematuria Musculoskeletal: Reports: No Symptoms Skin: Reports: No Symptoms Neurological: Reports: No Symptoms Psychiatric: Reports: No Symptoms - Patient Data Vitals - Most Recent: Last Vital Signs Temp 98.4 F 02/11/17 04:23 Pulse 51 L 02/11/17 04:23 Resp 14 02/11/17 04:23 BP 103/48 L 02/11/17 04:23 Pulse Ox 100 02/11/17 04:23 Weight - Most Recent: 147 lb 9.6 oz I&O - Last 24 hours: Intake & Output 02/10/17 02/11/17 02/11/17 22:59 06:59 14:59 Intake Total 1040 800 Output Total 1500 1500 Balance -460 -700 Lab Results - Last 24 hrs: Laboratory Results - last 24 hr 02/10/17 02/10/17 02/11/17 Range/Units 05:51 05:51 06:08 WBC 3.51 L (3.98-10.04) K/mm3 RBC 4.34 (3.98-5.22) M/mm3 Hgb 12.4 (11.2-15.7) gm/L Hct 37.0 (34.1-44.9) % MCV 85.3 (79.4-94.8) fl MCH 28.6 (25.6-32.2) pg MCHC 33.5 (32.2-35.5) g/dl RDW Std Deviation 40.7 (36.4-46.3) fL Plt Count 271 (182-369) K/mm3 MPV 9.6 (9.4-12.3) fl Neut % (Auto) 22.9 L (34.0-71.1) % Lymph % (Auto) 58.1 H (19.3-51.7) % Evans % (Auto) 14.2 H (4.7-12.5) % Eos % (Auto) 3.1 (0.7-5.8) Baso % (Auto) 1.7 H (0.1-1.2) % Neut # (Auto) 0.80 L (1.56-6.13) K/mm3 Lymph # (Auto) 2.04 (1.18-3.74) K/mm3 Evans # (Auto) 0.50 H (0.24-0.36) K/mm3 Eos # (Auto) 0.11 (0.04-0.36) K/mm3 Baso # (Auto) 0.06 (0.01-0.08) K/mm3 Sodium 142 (136-145) mEq/L Potassium 3.9 (3.5-5.1) mEq/L Chloride 111 H (98-107) mEq/L Carbon Dioxide 22 (21-32) mEq/L Anion Gap 12.9 (5-15) BUN 5 L (7-18) mg/dL Creatinine 0.7 (0.55-1.02) mg/dL Est Cr Clr Drug Dosing 86.71 mL/min Estimated GFR (MDRD) > 60 (>60) mL/min BUN/Creatinine Ratio 7.1 L (14-18) Glucose 77 (74-106) mg/dL Calcium 8.5 (8.5-10.1) mg/dL Magnesium 1.8 (1.8-2.4) mg/dl C-Reactive Protein 6.4 H* (<1.0) mg/dL 02/11/17 Range/Units 06:08 WBC (3.98-10.04) K/mm3 RBC (3.98-5.22) M/mm3 Hgb (11.2-15.7) gm/L Hct (34.1-44.9) % MCV (79.4-94.8) fl MCH (25.6-32.2) pg MCHC (32.2-35.5) g/dl RDW Std Deviation (36.4-46.3) fL Plt Count (182-369) K/mm3 MPV (9.4-12.3) fl Neut % (Auto) (34.0-71.1) % Lymph % (Auto) (19.3-51.7) % Evans % (Auto) (4.7-12.5) % Eos % (Auto) (0.7-5.8) Baso % (Auto) (0.1-1.2) % Neut # (Auto) (1.56-6.13) K/mm3 Lymph # (Auto) (1.18-3.74) K/mm3 Evans # (Auto) (0.24-0.36) K/mm3 Eos # (Auto) (0.04-0.36) K/mm3 Baso # (Auto) (0.01-0.08) K/mm3 Sodium 142 (136-145) mEq/L Potassium 3.7 (3.5-5.1) mEq/L Chloride 105 (98-107) mEq/L Carbon Dioxide 26 (21-32) mEq/L Anion Gap 14.7 (5-15) BUN 5 L (7-18) mg/dL Creatinine 0.8 (0.55-1.02) mg/dL Est Cr Clr Drug Dosing 75.87 mL/min Estimated GFR (MDRD) > 60 (>60) mL/min BUN/Creatinine Ratio 6.3 L (14-18) Glucose 84 (74-106) mg/dL Calcium 9.1 (8.5-10.1) mg/dL Magnesium 1.6 L (1.8-2.4) mg/dl C-Reactive Protein (<1.0) mg/dL JOEL Results - Last 24 hrs: Microbiology 02/08/17 11:20 Urine Culture - Final Urine, Bladder MIXED CECE SUGGESTIVE OF CONTAMINATION. Med Orders - Current: Current Medications Acetaminophen (Tylenol) 650 mg PO Q6H PRN PRN Reason: Fever Last Admin: 02/10/17 09:33 Dose: 650 mg Hydrocodone Bitart/Acetaminophen (Lander 325-5 Mg) 1 tab PO Q4H PRN PRN Reason: Pain (moderate 4-6) Last Admin: 02/11/17 02:23 Dose: 1 tab Albuterol/Ipratropium (Duoneb 3.0-0.5 Mg/3 Ml) 3 ml NEB Q4H PRN PRN Reason: Shortness Of Breath/wheezing Bisacodyl (Dulcolax) 5 mg PO DAILY PRN PRN Reason: Constipation Last Admin: 02/08/17 10:19 Dose: 5 mg Docusate Sodium (Colace) 100 mg PO BID PRN PRN Reason: Constipation Hydralazine HCl (Apresoline) 20 mg IVPUSH Q4H PRN PRN Reason: Hypertension Levofloxacin (Levaquin) 500 mg PO DAILY [facility] Last Admin: 02/10/17 08:37 Dose: 500 mg Magnesium Sulfate (Pharmacy To Dose - Magnesium Replacement) 0 dose .XX ASDIRECTED PRN PRN Reason: RX TO WATCH MAG LEVEL Metoclopramide HCl (Reglan) 5 mg PO TIDAC PRN PRN Reason: Nausea/Vomiting Last Admin: 02/10/17 16:25 Dose: 5 mg Metoprolol Tartrate (Lopressor) 5 mg IVPUSH Q4H PRN PRN Reason: Tachycardia Miscellaneous Information (Remove Patch) 0 ea TRDERM ONETIME [facility] Ondansetron HCl (Zofran) 4 mg IVPUSH Q6H PRN PRN Reason: Nausea Last Admin: 02/09/17 13:39 Dose: 4 mg Pantoprazole Sodium (Protonix) 40 mg PO DAILY KESHA Last Admin: 02/10/17 08:10 Dose: 40 mg Polyethylene Glycol (Miralax) 17 gm PO DAILY PRN PRN Reason: Constipation Last Admin: 02/08/17 20:50 Dose: 17 gm Potassium Chloride (Pharmacy To Dose - Potassium Replacement) 0 dose .XX ASDIRECTED PRN PRN Reason: PHARMACY TO WATCH K+ LEVELS Senna/Docusate Sodium (Senna Plus) 1 tab PO BID PRN PRN Reason: Constipation Sodium Chloride (Saline Flush) 10 ml FLUSH ASDIRECTED PRN PRN Reason: Keep Vein Open Last Admin: 02/08/17 04:11 Dose: 10 ml Sucralfate (Carafate) 1 gm PO QIDACANDBED [facility] Last Admin: 02/11/17 06:14 Dose: 1 gm Temazepam (Restoril) 15 mg PO BEDTIME PRN PRN Reason: Sleep Discontinued Medications Hydromorphone HCl (Dilaudid) 0.5 mg IVPUSH Q4H PRN PRN Reason: Pain Last Admin: 02/09/17 09:37 Dose: 0.5 mg Hydromorphone HCl (Dilaudid) 0.25 mg IVPUSH Q2H PRN PRN Reason: Pain (severe 7-10) Sodium Chloride (Normal Saline) 1,000 mls @ 999 mls/hr IV ONETIME [facility] Last Admin: 02/08/17 04:11 Dose: 999 mls/hr Sodium Chloride (Normal Saline) 1,000 mls @ 150 mls/hr IV ASDIRECTED [facility] Last Admin: 02/09/17 13:38 Dose: 150 mls/hr Levofloxacin/Dextrose 500 mg/ (Premix) 100 mls @ 100 mls/hr IV Q24H [facility] Last Infusion: 02/09/17 09:23 Dose: Infused Promethazine HCl 12.5 mg/ (Sodium Chloride) 50.5 mls @ 100 mls/hr IV Q6H PRN PRN Reason: Nausea/Vomiting Last Admin: 02/09/17 22:16 Dose: 100 mls/hr Sodium Chloride (Normal Saline) 1,000 mls @ 125 mls/hr IV ASDIRECTED ONE Stop: 02/10/17 08:29 Last Admin: 02/10/17 00:46 Dose: 125 mls/hr Lorazepam (Ativan) 1 mg IV Q6H PRN PRN Reason: Anxiety Metoclopramide HCl (Reglan) 5 mg IVPUSH ONETIME ONE Stop: 02/10/17 09:22 Last Admin: 02/10/17 09:28 Dose: 5 mg Metoclopramide HCl (Reglan) 5 mg IVPUSH ONETIME ONE Stop: 02/10/17 12:04 Last Admin: 02/10/17 13:31 Dose: 5 mg Ondansetron HCl (Zofran) 4 mg IVPUSH ONETIME ONE Stop: 02/08/17 03:56 Last Admin: 02/08/17 04:11 Dose: 4 mg Pantoprazole Sodium (Protonix Iv) 40 mg IVPUSH ONETIME ONE Stop: 02/09/17 13:36 Last Admin: 02/09/17 16:43 Dose: Not Given Pantoprazole Sodium (Protonix Iv) 40 mg IVPUSH ONETIME ONE Stop: 02/09/17 16:46 Last Admin: 02/09/17 16:48 Dose: 40 mg Scopolamine (Transderm-Scop) 1.5 mg TOP ONETIME ONE Stop: 02/08/17 10:16 Last Admin: 02/08/17 10:19 Dose: 1.5 mg - Exam Quality Assessment: Reports: DVT Prophylaxis General: Reports: Alert, Oriented, Cooperative, No Acute Distress HEENT: Reports: Pupils Equal, EOMI, Mucous Membr. Moist/[place] Neck: Reports: Supple Lungs: Reports: Clear to Auscultation, Normal Respiratory Effort Cardiovascular: Reports: Regular Rate, Regular Rhythm GI/Abdominal Exam: Normal Bowel Sounds, Soft, Non-Tender (Female) Exam: Deferred Rectal (Female) Exam: Deferred Extremities: No Pedal Edema, Normal Capillary Refill Neurological: Reports: No New Focal Deficit Psy/Mental Status: Reports: Alert, Normal Affect, Normal Mood *Q Meaningful Use (DIS) - VTE *Q VTE Criteria *Q: - Stroke *Q Stroke Criteria *Q: - AMI *Q AMI Criteria *Q:
[2017-02-11] MEDS: Metoclopramide 5 MG Tab PO PRN (08:21)
[2017-02-11] MEDS: Pantoprazole 40 MG Tab.CR PO SCH (08:21)
[2017-02-11] MEDS: Levofloxacin 500 MG Tab PO SCH (08:21)
[2017-02-11 08:54] VITALS: BP 112/55
== END 2017-02-11 09:53 | disposition home or self-care (01) | DRG 690 ==
LOC: JD.ED 03:34 → JD.MS 04:41
PROVIDERS: ADMIT Internal Medicine; ATTEND Internal Medicine
DX: N12 Tubulo-interstitial nephritis, not specified as acute or chronic (principal); N39.0 Urinary tract infection, site not specified; B96.20 Unspecified Escherichia coli [E. coli] as the cause of diseases classified elsewhere; R11.0 Nausea; R10.9 Unspecified abdominal pain; F17.210 Nicotine dependence, cigarettes, uncomplicated; F12.90 Cannabis use, unspecified, uncomplicated; Z91.030 Bee allergy status
CPT/HCPCS: 36415; 76705; 76705-26; 80048; 80076; 83690; 83735; 84703; 85025; 86140; 86677; 87086; 96361; 96374; 99222; 99231; 99239; 99284; 99285-25; A9270-GY; C9113; J1170; J1956; J2405; J2550; J2765; J7040; J7050

== ENCOUNTER 2017-07-01 22:01 | Emergency (ER) | payer SELFPAY ==
[2017-07-01 22:15] VITALS: BP 116/74
--- NOTE | 2017-07-01 23:07 | EDM.PDOC ---
ED HPI GENERAL MEDICAL PROBLEM - General Chief Complaint: Respiratory Problem Stated Complaint: COUGH CONGESTION SOB Time Seen by Provider: 07/01/17 22:46 Source of Information: Reports: Patient History Limitations: Reports: No Limitations - History of Present Illness INITIAL COMMENTS - FREE TEXT/NARRATIVE: The patient states that she developed central chest pain, radiating around the right side of her chest to her back, this past 06/27/2017. If she remains perfectly still, she has minimal pain, but the pain is made worse with any movement, including breathing. She states that she developed a dry cough this past Wednesday, along with dyspnea and slight wheezing. She has a history of asthma , and is prescribed albuterol both by MDI and by nebulizer. She states that she used all of her albuterol, which only made her symptoms worse. Her last albuterol treatment was around 18:30 tonight. She states that she also tried Tylenol, without relief. No prior similar symptoms. No recent fever. No recent nausea, vomiting, constipation, diarrhea, or urinary symptoms. The patient does not have a PCP. The albuterol was prescribed prior to moving to this area. 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: Hematologic History: Reports: Anemia Social & Family History - Family History Family Medical History: Noncontributory HEENT: Reports: None Cardiac: Reports: None Respiratory: Reports: None : Reports: None OBGYN: Reports: None Musculoskeletal: Reports: RA Neurological: Reports: None Endocrine/Metabolic: Reports: None Hematologic: Reports: None Immunologic: Reports: None Dermatologic: Reports: None Oncologic: Reports: None - Tobacco Use Smoking Status *Q: Current Every Day Smoker Years of Tobacco use: 14 Packs/Tins Daily: 0.3 - Caffeine Use Caffeine Use: Reports: Coffee - Alcohol Use Alcohol Use History: Yes Alcohol Use Frequency: Socially - Recreational Drug Use Recreational Drug Use: Yes Drug Use in Last 12 Months: Yes Recreational Drug Type: Reports: Marijuana/Hashish (socually) Other Recreational Drug Type: once a month Recreational Drug Last Use: 5 days ago - Sexual History Sexual History: Reports: Sexually Active - Living Situation & Occupation Living situation: Reports: Single, Alone Occupation: Employed ([employer]) ED ROS GENERAL - Review of Systems Review Of Systems: ROS reveals no pertinent complaints other than HPI. ED EXAM, GENERAL - Physical Exam Exam: See Below Exam Limited By: No Limitations General Appearance: Alert, WD/WN, No Apparent Distress Eye Exam: Bilateral Eye: Normal Inspection Ears: Normal External Exam, Hearing Grossly Normal Nose: Normal Inspection, No Blood Throat/Mouth: Normal Inspection, Normal Lips, Normal Voice, No Airway Compromise Head: Atraumatic, Normocephalic Neck: Normal Inspection, Full Range of Motion Respiratory/Chest: No Respiratory Distress, Lungs Clear, Normal Breath Sounds, No Accessory Muscle Use, Other (The patient reports pain to virtually any movement, improving breathing. She reports tenderness to palpation with the stethoscope.). No: Decreased Breath Sounds, Crackles, Rhonchi, Wheezing, Pleural Rub, Splinting, Prolonged Expiration Cardiovascular: Normal Peripheral Pulses, Regular Rate, Rhythm, No Gallop, No JVD, No Murmur, No Rub Peripheral Pulses: 3+: Radial (L), Radial (R) GI/Abdominal: Normal Bowel Sounds, Soft, Non-Tender, No Organomegaly, No Distention, No Abnormal Bruit, No Mass (Female) Exam: Deferred Rectal (Female) Exam: Deferred Back Exam: Normal Inspection, Full Range of Motion, NT Extremities: Normal Inspection, Normal Range of Motion, No Pedal Edema, Normal Capillary Refill Neurological: Alert, Oriented, Normal Cognition, No Motor/Sensory Deficits Psychiatric: Normal Affect Skin Exam: Warm, Dry, Intact, Normal Color, No Rash Course - Vital Signs Last Recorded V/S: Last Vital Signs Temp 36.7 C 07/01/17 22:12 Pulse 78 07/01/17 22:12 Resp 18 07/01/17 22:12 BP 116/74 07/01/17 22:12 Pulse Ox 100 07/01/17 22:12 - Orders/Labs/Meds Orders: Active Orders 24 hr Category Date Time Status Chest 2V [CR] Stat Exams 07/01/17 23:01 Taken Meds: Medications Discontinued Medications Generic Name Dose Route Start Last Admin Trade Name Caroline PRN Reason Stop Dose Admin Orphenadrine Citrate 100 mg 07/02/17 00:12 07/02/17 00:19 Norflex PO 07/02/17 00:13 100 mg ONETIME STA Administration - Re-Assessments/Exams Free Text/Narrative Re-Assessment/Exam: 07/01/17 23:09 The patient's lung sounds are entirely clear to auscultation and equal bilaterally. My clinical suspicion for pneumothorax is low, but I believe it is important to rule out, therefore I have ordered an inspiratory and expiratory chest x-ray. As the patient has no fever, and is currently saturating 100% on room air, I don't see an indication for blood work and less her chest x-ray demonstrates an infiltrate. A chest x-ray is normal, I believe her pain is musculoskeletal in etiology. While the patient confirms that she has a history of asthma, diagnosed by PFTs, she does not have a peak flow meter at home. I will have the Respiratory Therapist give her one and teach her how to use it. 07/02/17 00:12 Two-view chest radiograph appears to be grossly normal. Cardiac silhouette is within normal limits. No pulmonary vascular congestion. No pleural effusions. No focal infiltrate. No pneumothorax. Formal read per the Radiologist pending. I will start the patient on Norflex. 07/02/17 01:01 The respiratory therapist provided the patient a peak flow meter and taught her how to use it. I will prescribe Norflex for a week, and refer the patient to Dr. Moses as a PCP. Departure - Departure Time of Disposition: 01:01 Disposition: Home, Self-Care 01 Condition: Good Clinical Impression: Musculoskeletal chest pain - Discharge Information Referrals: PCP,None [Primary Care Provider] - Geovanna Moses MD [Physician] - Forms: ED Department Discharge Additional Instructions: You were seen in the emergency room for right sided chest pain, radiating around to your back along with shortness of breath and a dry cough. Workup in the ER included a chest x-ray, which returned completely normal. You do not have pneumonia or a collapsed lung. The cause of your chest pain is MOST LIKELY due to a muscle spasm. We recommend that you take [id number] ibuprofen, 2-3 tablets (400-600 mg) every 8 hours, with food, as needed for discomfort. You have been started on the muscle relaxant Norflex. A prescription for this has been sent to the [facility], [address] [place] [address]. Take one tablet every 12 hours, as prescribed. You have been provided with a peak flow meter. We recommend that you become familiar with this and learn how to use it properly. We recommend that you check your peak flow a couple of times a week. If your peak flow goes from green to yellow, even if your breathing feels fine, contact your doctor for possible medication to prevent an impending asthma attack. If you are feeling short of breath and your peak flow is in the yellow or red zone, take albuterol as prescribed. If you are feeling short of breath, but your peak flow is in the green zone, DO NOT take albuterol. Your shortness of breath is due to something other than an asthma exacerbation. Follow-up with Dr. Geovanna Moses as a primary care physician. If any other problems, please do not hesitate to return to the ER. - My Orders Last 24 Hours: My Active Orders 07/01/17 23:01 Chest 2V [CR] Stat - Assessment/Plan Last 24 Hours: My Active Orders 07/01/17 23:01 Chest 2V [CR] Stat
[2017-07-02] MEDS ORDERED: Orphenadrine 100 MG Tab.ER PO STA (00:12)
--- NOTE | 2017-07-02 06:19 | CR ---
Chest: Two views of the chest were obtained. Comparison: Prior chest x-ray of 12/21/16. Heart size and mediastinum are normal. Lungs are clear. No pneumothorax is seen. Bony structures appear unremarkable. Impression: 1. Nothing acute is seen on two-view chest x-ray. Diagnostic code #1
== END 2017-07-02 01:13 | disposition home or self-care (01) ==
LOC: JD.ED 22:01
DX: R07.89 Other chest pain (principal); J45.909 Unspecified asthma, uncomplicated; F17.210 Nicotine dependence, cigarettes, uncomplicated; Z91.030 Bee allergy status
CPT/HCPCS: 71046; 99283; A9270

== ENCOUNTER 2018-09-03 11:43 | Emergency (ER) | payer SELFPAY ==
[2018-09-03 11:54] VITALS: BP 138/102
--- NOTE | 2018-09-03 12:25 | EDM.PDOC ---
ED HPI GENERAL MEDICAL PROBLEM - General Chief Complaint: General Stated Complaint: DENTAL COMPLAINT Time Seen by Provider: 09/03/18 12:00 Source of Information: Reports: Patient History Limitations: Reports: No Limitations - History of Present Illness INITIAL COMMENTS - FREE TEXT/NARRATIVE: 27-year-old female presents for evaluation and treatment of tooth pain. Patient states that last night she was sleeping and experienced dental pain that woke her up. She went to rinse out her mouth and the filling to tooth #4 came out. She reports that around 3 AM she developed severe pain to the tooth. She has been trying [id number]-[id number] medications including Orajel, BC powder, Excedrin and extra strength ibuprofen. She reports the pain is radiating up into her sinuses and her right ear. She denies any fevers, chills, cough, nausea, vomiting or any bad taste in her mouth. Last dental visit sometime last winter. She states that her problems with her to discuss this tooth the past. Records show that she's been seen in the ER several occasions for dental to this tooth. Tooth/Teeth Pain Score (Numeric/FACES): 10 - Related Data Allergies Allergy/AdvReac Type Severity Reaction Status Date / Time venom-honey bee Allergy Swelling Verified 09/03/18 11:47 [bee venom (honey bee)] Home Meds: Home Meds Acetaminophen/HYDROcodone [Chowchilla 325-5 MG] 1 tab PO Q6H PRN #12 tablet 09/03/18 [Rx] Past Medical History HEENT History: Reports: Other (See Below) Other HEENT History: ear infection. 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 COMMUNICATIONS ATTENDANT History: Remembers an incident were she was told she may have had a miscarriage, but there was no testing done to confirm it Hematologic History: Reports: Anemia - Infectious Disease History Infectious Disease History: Reports: None - Past Surgical History Female Surgical History: Reports: Other (See Below) Social & Family History - Family History Family Medical History: Noncontributory HEENT: Reports: None Cardiac: Reports: None Respiratory: Reports: None : Reports: None OBGYN: Reports: None Musculoskeletal: Reports: RA Neurological: Reports: None Endocrine/Metabolic: Reports: None Hematologic: Reports: None Immunologic: Reports: None Dermatologic: Reports: None Oncologic: Reports: None - Tobacco Use Smoking Status *Q: Current Every Day Smoker Years of Tobacco use: 10 Packs/Tins Daily: 0.3 - Caffeine Use Caffeine Use: Reports: Coffee - Recreational Drug Use Recreational Drug Use: No - Sexual History Sexual History: Reports: Sexually Active - Living Situation & Occupation Living situation: Reports: Single, Alone Occupation: Employed ([employer]) ED ROS GENERAL - Review of Systems Review Of Systems: See Below Constitutional: Denies: Fever, Chills HEENT: Reports: Dental Pain (right uper molar), Ear Pain (right), Sinus Problem (right sided sinus pain), Other (denies any bad taste in her mouth) GI/Abdominal: Denies: Nausea, Other ED EXAM, GENERAL - Physical Exam Exam: See Below Exam Limited By: No Limitations General Appearance: Alert, WD/WN, Mild Distress Eye Exam: Bilateral Eye: Normal Inspection Ears: Normal External Exam, Normal Canal, Hearing Grossly Normal, Normal TMs Nose: Normal Inspection Throat/Mouth: Normal Inspection, Normal Lips, Normal Voice, No Airway Compromise , Other (multiple carries and several missing teeth, #4 is broken, deep adelia present, no filling present currently) Neck: Normal Inspection Respiratory/Chest: No Respiratory Distress, Lungs Clear, Normal Breath Sounds Cardiovascular: Normal Peripheral Pulses, Regular Rate, Rhythm, No Murmur Course - Vital Signs Last Recorded V/S: Last Vital Signs Temp 97.8 F 09/03/18 11:47 Pulse 77 09/03/18 11:47 Resp 16 09/03/18 11:47 BP 138/102 H 09/03/18 11:47 Pulse Ox 100 09/03/18 11:47 Departure - Departure Time of Disposition: 12:10 Disposition: Home, Self-Care 01 Condition: Good Clinical Impression: Dentalgia - Discharge Information *PRESCRIPTION DRUG MONITORING PROGRAM REVIEWED*: No *COPY OF PRESCRIPTION DRUG MONITORING REPORT IN PATIENT VIOLA: No Prescriptions: Acetaminophen/HYDROcodone [Chowchilla 325-5 MG] 1 tab PO Q6H PRN #12 tablet PRN Reason: Pain Instructions: Diet and Dental Disease Referrals: PCP,None [Primary Care Provider] - Forms: ED Department Discharge Additional Instructions: Recommend [id number] ibuprofen for pain. may take up to 3200 mg of ibuprofen and 1 day. For pain not relieved by ibuprofen you may take Chowchilla one tablet every 6 hours. Chowchilla is habit-forming, take as few these as needed to control your pain. Do not drive or operate machinery within 10 hours of taking Chowchilla. Unfortunately the ER is unable to refills narcotic pain medication. Should you need additional pain relief, see a dentist or your primary care provider. Recommend purchasing some dental wax and applying this to the tooth. The exposed nerve is what is causing her pain today and this can help treat that. Recommend continue using Orajel and clove oil for additional pain relief. Follow-up with a dentist. A list of dentists has been for provided for you of dentists here in [facility]. If cost is a concern, recommend [facility] in [place]. They charge based on a sliding fee schedule. Their number is [phone]. Please return to the ER for symptoms change or worsen.
== END 2018-09-03 12:40 | disposition home or self-care (01) ==
LOC: JD.ED 11:43
DX: K02.9 Dental caries, unspecified (principal); K03.81 Cracked tooth; F17.210 Nicotine dependence, cigarettes, uncomplicated; Z91.030 Bee allergy status
CPT/HCPCS: 99282; 99283

== ENCOUNTER 2019-02-03 21:06 | Emergency (ER) | payer SELFPAY ==
[2019-02-03 21:16] VITALS: BP 122/74; PULSE 92
[2019-02-03] MEDS ORDERED: Lidocaine 1% 10 ML MDV ONE (21:22)
[2019-02-03] MEDS ORDERED: Lidocaine 1% 10 ML MDV INJECT ONE (21:23)
--- NOTE | 2019-02-03 21:40 | EDM.PDOC ---
ED HPI GENERAL MEDICAL PROBLEM - General Chief Complaint: Lower Extremity Injury/Pain Stated Complaint: toe infection Time Seen by Provider: 02/03/19 21:10 Source of Information: Reports: Patient History Limitations: Reports: No Limitations - History of Present Illness INITIAL COMMENTS - FREE TEXT/NARRATIVE: This is a 28-year-old female. 2-3 days ago she stubbed her left great toe she was attempting to move some furniture around her house. She noted afterwards that she had some bleeding on the lateral side of the left great toe and since that time it is starting to swell up and there is some yellow drainage. She comes to the ER simply because it is hurting and she has the swelling and the drainage. She denies any fever or chills she denies any other acute symptoms. She has no other toe injury other than the left great toe. Left Toe-Hailux Pain Score (Numeric/FACES): 10 - Related Data Allergies Allergy/AdvReac Type Severity Reaction Status Date / Time venom-honey bee Allergy Swelling Verified 02/03/19 21:14 [bee venom (honey bee)] Home Meds: Home Meds Cephalexin [Keflex] 500 mg PO TID #15 capsule 02/03/19 [Rx] Past Medical History HEENT History: Reports: Other (See Below) Other HEENT History: ear infection. 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: Reports: Other [employer] History: Remembers an incident were she was told she may have had a miscarriage, but there was no testing done to confirm it Hematologic History: Reports: Anemia - Infectious Disease History Infectious Disease History: Reports: None - Past Surgical History Female Surgical History: Reports: Other (See Below) Social & Family History - Family History Family Medical History: Noncontributory HEENT: Reports: None Cardiac: Reports: None Respiratory: Reports: None : Reports: None OBGYN: Reports: None Musculoskeletal: Reports: RA Neurological: Reports: None Endocrine/Metabolic: Reports: None Hematologic: Reports: None Immunologic: Reports: None Dermatologic: Reports: None Oncologic: Reports: None - Tobacco Use Smoking Status *Q: Current Every Day Smoker Years of Tobacco use: 15 Packs/Tins Daily: 0.5 - Caffeine Use Caffeine Use: Reports: Coffee - Recreational Drug Use Recreational Drug Use: No - Sexual History Sexual History: Reports: Sexually Active - Living Situation & Occupation Living situation: Reports: Single, Alone Occupation: Employed ([employer]) Review of Systems - Review of Systems Review Of Systems: See Below Constitutional: Denies: Chills, Fever Eyes: Reports: No Symptoms Ears: Reports: No Symptoms Nose: Reports: No Symptoms Mouth/Throat: Reports: No Symptoms Respiratory: Reports: No Symptoms Cardiovascular: Reports: No Symptoms GI/Abdominal: Reports: No Symptoms Genitourinary: Reports: No Symptoms Musculoskeletal: Reports: Foot Pain Skin: Reports: Wound Neurological: Reports: No Symptoms Psychiatric: Reports: No Symptoms ED EXAM, GENERAL - Physical Exam Exam: See Below Exam Limited By: No Limitations General Appearance: Alert, WD/WN, No Apparent Distress Eye Exam: Bilateral Eye: Normal Inspection Ears: Normal External Exam Nose: Normal Inspection Throat/Mouth: Normal Inspection, Normal Lips, Normal Voice, No Airway Compromise Head: Normocephalic Neck: Supple Respiratory/Chest: No Respiratory Distress Back Exam: Full Range of Motion Extremities: Normal Range of Motion, Other (Left great toe has an ingrown nail on the lateral side there is some inhalation tissue noted as well as some erythema and some mild purulent drainage. Is no paronychia developing at this time. No other foot or toe trauma or infection.) Neurological: Alert, Oriented Psychiatric: Normal Affect, Normal Mood Skin Exam: Warm, Dry ED TRAUMA EXTREMITY PROCEDURES - Additional/Other Procedure(s) Other (Free Text) Procedure(s): The left great toe was prepped with some Betadine. Approximately 5 mL of plain 1 % lidocaine was infiltrated with good anesthesia of the skin and the toenail. A small 8 mm size wedge resection of the lateral great toenail into the matrix was removed and the granulation tissue was also excised. Bleed was controlled and the patient tolerated the procedure well. Antibiotic ointment was placed and a dressing was placed. Course - Vital Signs Last Recorded V/S: Last Vital Signs Temp 98.5 F 02/03/19 21:13 Pulse 92 02/03/19 21:13 Resp 14 02/03/19 21:13 BP 122/74 02/03/19 21:13 Pulse Ox 100 02/03/19 21:13 - Orders/Labs/Meds Meds: Medications Discontinued Medications Generic Name Dose Route Start Last Admin Trade Name Freq PRN Reason Stop Dose Admin Lidocaine HCl 10 ml 02/03/19 21:23 02/03/19 21:25 Xylocaine 1% INJECT 02/03/19 21:24 10 ml ONETIME ONE Administration Lidocaine HCl Confirm 02/03/19 21:22 02/03/19 21:25 Xylocaine 1% Administered 02/03/19 21:23 Not Given Dose 10 ml .ROUTE .STK-MED ONE Departure - Departure Time of Disposition: 21:40 Disposition: Home, Self-Care 01 Condition: Good Clinical Impression: Ingrowing left great toenail, Cellulitis of great toe, left - Discharge Information *PRESCRIPTION DRUG MONITORING PROGRAM REVIEWED*: Not Applicable *COPY OF PRESCRIPTION DRUG MONITORING REPORT IN PATIENT VIOLA: Not Applicable Prescriptions: Cephalexin [Keflex] 500 mg PO TID #15 capsule Instructions: Fingernail or Toenail Removal, Adult, Care After Referrals: PCP,None [Primary Care Provider] - Forms: ED Department Discharge Additional Instructions: Take the antibiotics for the next 5 days, keep the area clean and dry but you may take a shower and wash it carefully, use tylenol or ibuprophen as needed for pain, follow up with your primary care provider later this week for recheck , return to the ER if needed.
== END 2019-02-03 21:50 | disposition home or self-care (01) ==
LOC: JD.ED 21:06
DX: L60.0 Ingrowing nail (principal); L03.032 Cellulitis of left toe; F17.210 Nicotine dependence, cigarettes, uncomplicated; Z91.030 Bee allergy status
CPT/HCPCS: 11765; 99283; J2001

== ENCOUNTER 2020-07-09 21:26 | Emergency (ER) | payer SELFPAY ==
[2020-07-09 21:40] VITALS: BP 140/97; PULSE 100
[2020-07-09] MEDS ORDERED: Sulfamethoxazole/Trimethoprim 800-160 MG Tab PO STA (22:11)
--- NOTE | 2020-07-09 22:17 | EDM.PDOC ---
ED HPI GENERAL MEDICAL PROBLEM - General Chief Complaint: Skin Complaint Stated Complaint: SWOLLEN/PAINFUL SORE ON RIGHT LEG Time Seen by Provider: 07/09/20 21:42 Source of Information: Reports: Patient History Limitations: Reports: No Limitations - History of Present Illness INITIAL COMMENTS - FREE TEXT/NARRATIVE: Ms. Hong is a pleasant 29-year-old woman who now presents to the ED with a right thigh lesion. She states that she received a tattoo to her right anterolateral thigh by a friend 6 days ago, 07/03/2020. She states that she believes she was then bitten on her thigh, immediately adjacent to the tattoo, by a brown recluse spider, this past Wednesday night, 07/07/2020. She states that she was sitting on the floor in her house. She did not see a spider, but she states that she felt its bite. Since then, she states that she has developed painful swelling and erythema to the area under and surrounding the tattoo. She states that it began draining a purulent malodorous fluid from the center of the swollen area this morning. She has been applying heating pads. No recent fever. No prior similar symptoms. Here in the ED, the patient's initial BP is found to be slightly elevated at 140/97, otherwise, she is hemodynamically stable, afebrile, saturating 100% on room air. Other than the thigh issue, the patient denies having a recent fever, chills, sore throat, ear pain, nasal or sinus congestion, cough, dyspnea, chest pain, palpitations, nausea, vomiting, constipation, diarrhea, abdominal pain, urinary symptoms, recent weight gain or weight loss, recent bloody bowel movements or black bowel movements, recent joint aches, headaches, or rashes. The patient does not have a PCP. Right Leg Pain Score (Numeric/FACES): 10 - Related Data Allergies Allergy/AdvReac Type Severity Reaction Status Date / Time venom-honey bee Allergy Severe Swelling Verified 07/09/20 21:40 [bee venom (honey bee)] Home Meds: Home Meds Sulfamethoxazole/Trimethoprim [Bactrim Ds Tablet] 1 tab PO Q12H #20 tablet 07/09/20 [Rx] Past Medical History Respiratory History: Reports: Asthma (PFT-proven) Gastrointestinal History: Reports: Inflammatory Bowel Disease (ulcerative colitis - untreated) Endocrine/Metabolic History: Reports: Obesity/BMI 30+, Other (See Below) (Prediabetes) - Past Surgical History HEENT Surgical History: Reports: Oral Surgery (dental extractions) Social & Family History - Tobacco Use Tobacco Use Status *Q: Current Every Day Tobacco User Years of Tobacco use: 16 Packs/Tins Daily: 0.3 Packs/Tins Daily Comment: Down from 1 ppd Tobacco Use Comment: Started smoking at 13 yrs old - Caffeine Use Caffeine Use: Reports: Tea - Alcohol Use Alcohol Use History: No - Recreational Drug Use Recreational Drug Use: No - Sexual History Sexual History: Reports: Sexually Active - Living Situation & Occupation Living situation: Reports: Single, with Family (2 kids) Occupation: Employed ([employer]) ED ROS GENERAL - Review of Systems Review Of Systems: Comprehensive ROS is negative, except as noted in HPI. ED EXAM, SKIN/RASH Exam: See Below Exam Limited By: No Limitations General Appearance: Alert, WD/WN, No Apparent Distress Extremities: Other (On the anterolateral aspect of the patient's right thigh, there is an approximately 10 cm area of erythema, calor, slight swelling, and tenderness, in the center of which is a punctate area where there is no current drainage, but where earlier reported drainage likely emanated. Within this 10 cm ar) Course - Vital Signs Last Recorded V/S: Last Vital Signs Temp 36.2 C 07/09/20 21:37 Pulse 100 07/09/20 21:37 Resp 16 07/09/20 21:37 BP 140/97 H 07/09/20 21:37 Pulse Ox 100 07/09/20 21:37 - Orders/Labs/Meds Meds: Medications Discontinued Medications Generic Name Dose Route Start Last Admin Trade Name Freq PRN Reason Stop Dose Admin Trimethoprim/Sulfamethoxazole 1 tab 07/09/20 22:11 07/09/20 22:46 Sulfamethoxazole/Trimethoprim 800-160 Mg Tab PO 07/09/20 22:12 1 tab ONETIME STA Administration - Re-Assessments/Exams Free Text/Narrative Re-Assessment/Exam: 07/09/20 22:11 As above, the patient appears to have purulent cellulitis of her right anterolateral thigh related to a tattoo that she received to the area 6 days ago. She is convinced that she was bitten by a brown recluse spider on Wednesday, however, brown recluse spiders are primarily located in [place], [place], [place], [place], [place], [place], [place], [place], [place], [place], [place], [place], [place], [place], [place], and parts of [place]. While not impossible, it is highly unlikely that the patient would have been bitten by a brown recluse spider here in [place], particularly, since she states that she was just sitting on her floor when it occurred. Brown recluse spiders avoid going into open spaces. Additionally, while many bites from a brown recluse spider cause necrosis, they do not tend to cause infections, which the patient appears to have here, since she is describing some purulent drainage from her wound. On examination, she has an approximately 10 cm area of erythema and induration, with a small central area that is not currently draining, but is likely where the purulent drainage had previously been coming from. For today's purposes, I am not recommending an I&D, as I do not feel that there is a drainable abscess. I am therefore recommending treatment with an antibiotic that will cover MRSA, such as Bactrim DS, with a follow-up with Dr. Lowry either tomorrow or . The patient is agreeable. 07/09/20 22:46 Notified by Winnie WILKERSON that the patient would like a note for work. I have excused her through 07/12/2020. This should give her plenty of time to see Dr. Lowry. Departure - Departure Time of Disposition: 22:17 Disposition: Home, Self-Care 01 Condition: Good Clinical Impression: Cellulitis of right thigh - Discharge Information *PRESCRIPTION DRUG MONITORING PROGRAM REVIEWED*: Not Applicable *COPY OF PRESCRIPTION DRUG MONITORING REPORT IN PATIENT VIOLA: Not Applicable Prescriptions: Sulfamethoxazole/Trimethoprim [Bactrim Ds Tablet] 1 tab PO Q12H #20 tablet Instructions: Cellulitis, Adult Referrals: PCP,None [Primary Care Provider] - Kelby Lowry MD [Physician] - Forms: ED Department Discharge, ED Return to Work/School Form Additional Instructions: You were seen in the emergency room for a warm, tender, reddish area of swelling to your right thigh, with some purulent drainage this morning. Based on your history and physical examination, you are most likely suffering from purulent cellulitis - an section of the soft tissue of your thigh, most likely related to the tattoo that you received 6 days ago. We feel that it is unlikely that you were bitten by a brown recluse spider. You have been started on the antibiotic Bactrim DS, and a prescription for Bactrim DS has been sent to the [facility], located at [address] [place] [address]. Take 1 tablet of Bactrim DS every 12 hours, starting tomorrow morning, 07/10/2020, as prescribed. Finish the entire prescription unless told otherwise by a doctor. We recommend that you continue to apply a heating pad to the area for several minutes, several times a day. You may take [id number] Tylenol or ibuprofen as needed for discomfort. We recommend that you follow-up with the Surgeon Dr. Kelby Lowry next available appointment. Please call his office in the morning to make an appointment. If any other problems, please do not hesitate to return to the ER. Sepsis Event Note (ED) - Evaluation Sepsis Screening Result: No Definite Risk - Focused Exam Vital Signs: Vital Signs Temp Pulse Resp BP Pulse Ox 07/09/20 21:37 36.2 C 100 16 140/97 H 100
== END 2020-07-09 22:50 | disposition home or self-care (01) ==
LOC: JD.ED 21:26
DX: L03.115 Cellulitis of right lower limb (principal); J45.909 Unspecified asthma, uncomplicated; E66.9 Obesity, unspecified; Z68.35 Body mass index [BMI] 35.0-35.9, adult; Z72.0 Tobacco use; Z91.030 Bee allergy status
CPT/HCPCS: 99282; A9270; 99283

== ENCOUNTER 2021-10-29 11:36 | Emergency (ER) | payer SELFPAY ==
[2021-10-29 13:35] VITALS: BP 123/6; PULSE 92
[2021-10-29] MEDS ORDERED: Lidocaine 1% 10 ML MDV INJECT ONE (14:03)
[2021-10-29] MEDS ORDERED: Acetaminophen/HYDROcodone 325-5 MG Tab PO ONE (14:52)
[2021-10-29] MEDS ORDERED: Doxycycline Monohydrate 100 MG Cap PO ONE (14:53)
== END 2021-10-29 15:06 | disposition home or self-care (01) ==
LOC: JD.ED 11:36
DX: L02.415 Cutaneous abscess of right lower limb (principal); F17.210 Nicotine dependence, cigarettes, uncomplicated; E66.9 Obesity, unspecified; Z68.32 Body mass index [BMI] 32.0-32.9, adult; Z91.030 Bee allergy status
CPT/HCPCS: 10060; 87070; 87075; 87205; 99283; A9270; 87077; 87186

== ENCOUNTER 2021-12-20 14:23 | Emergency (ER) | payer SELFPAY ==
[2021-12-20] MEDS ORDERED: fentaNYL 100 MCG/2 ML SDV IVPUSH ONE (15:09)
[2021-12-20] MEDS ORDERED: Midazolam 1 MG/ML 2 ML SDV IVPUSH ONE (15:09)
[2021-12-20] MEDS ORDERED: Propofol 200 MG/20 ML SDV IVPUSH ONE ×2 (16:05→17:11)
[2021-12-20] MEDS ORDERED: Ketamine 500 mg/10 ML MDV IV ONE (16:05)
[2021-12-20] MEDS ORDERED: Ketorolac 15 MG/ML SDV IVPUSH ONE (16:05)
[2021-12-20] MEDS ORDERED: Sodium Chloride 0.9% 1,000 ML IV ONE (16:37)
[2021-12-20] MEDS ORDERED: Sodium Chloride 0.9% 1,000 ML ONE (16:38)
[2021-12-20 17:38] VITALS: BP 103/76; PULSE 74
== END 2021-12-20 18:47 | disposition home or self-care (01) ==
LOC: JD.ED 14:23
DX: S43.004A Unspecified dislocation of right shoulder joint, initial encounter (principal); E66.9 Obesity, unspecified; Z68.21 Body mass index [BMI] 21.0-21.9, adult; Z91.030 Bee allergy status; Z79.899 Other long term (current) drug therapy; X50.1XXA Overexertion from prolonged static or awkward postures, initial encounter
CPT/HCPCS: 23650; 73020; 73030; 96361; 96374; 99152; 99153; 99283; J1885; J2250; J2704; J3010; J3490; J7030; 23655; 99284

== ENCOUNTER 2022-07-07 20:26 | Emergency (ER) | payer MEDICAID, OTHER ==
[2022-07-07 20:58] VITALS: BP 113/79; PULSE 82
[2022-07-07] MEDS ORDERED: Sodium Chloride 0.9% 10 ML Syringe FLUSH PRN (21:03)
[2022-07-07] MEDS ORDERED: Ondansetron 4 MG/2 ML SDV IVPUSH ONE (21:08)
[2022-07-07] MEDS ORDERED: Sodium Chloride 0.9% 1,000 ML IV ONE (21:08)
[2022-07-07] MEDS ORDERED: Ondansetron 4 MG/2 ML SDV ONE (21:19)
[2022-07-07] MEDS ORDERED: Sodium Chloride 0.9% 1,000 ML ONE (21:19)
[2022-07-07] MEDS ORDERED: Ondansetron 4 MG Tab.DIS PO ONE (22:50)
[2022-07-07] MEDS ORDERED: Metoclopramide 10 MG/2 ML SDV IVPUSH ONE (22:50)
[2022-07-07] MEDS ORDERED: Ondansetron 4 MG Tab.DIS ONE (22:56)
[2022-07-07] MEDS ORDERED: Metoclopramide 10 MG/2 ML SDV ONE (22:56)
== END 2022-07-07 23:30 | disposition home or self-care (01) ==
LOC: JD.ED 20:26
DX: O20.9 Hemorrhage in early pregnancy, unspecified (principal); R10.30 Lower abdominal pain, unspecified; Z3A.08 8 weeks gestation of pregnancy; F17.210 Nicotine dependence, cigarettes, uncomplicated; E66.9 Obesity, unspecified; Z68.31 Body mass index [BMI] 31.0-31.9, adult; Z91.030 Bee allergy status
CPT/HCPCS: 36415; 76817; 80053; 84702; 85025; 86140; 96361; 96374; 96375; 99284; A9270; J2405; J2765; J3490; J7030